=== PATIENT | female | born 1960 | race Caucasian/White ===

== ENCOUNTER → 2020-06-05 11:12 | Outpatient (CLI) | payer OTHER, SELFPAY ==
--- NOTE | 2020-06-05 | DI.MG.S_ITS ---
BILATERAL DIGITAL SCREENING MAMMOGRAM 3D/2D WITH CAD: 06/05/2020 CLINICAL: Routine screening. Comparison is made to exam dated: 06/16/2016 mammogram - outside location. The tissue of both breasts is heterogeneously dense. This may lower the sensitivity of mammography. Current study was also evaluated with a Computer Aided Detection (CAD) system. No significant masses, calcifications, or other findings are seen in either breast. There has been no significant interval change. IMPRESSION: NEGATIVE There is no mammographic evidence of malignancy. A 1 year screening mammogram is recommended. This exam was interpreted at Station ID: [id number]. NOTE: For mammograms, a report in lay terms will be sent to the patient. Approximately 15% of breast malignancies will not be visualized mammographically. In the management of a palpable breast mass, a negative mammogram must not discourage biopsy of a clinically suspicious lesion. Electronically Signed By: Ludwig paredes/avel:06/05/2020 15:10:01 letter sent: Normal Exam ACR BI-RADS Category 1: Negative 3341F
== END ==
PROVIDERS: PCP Family Medicine; Referring Provider Family Medicine; Visit Provider Family Medicine
DX: Z12.31 Encounter for screening mammogram for malignant neoplasm of breast (principal)
CPT/HCPCS: 77063; 77067

== ENCOUNTER 2021-02-24 21:07 | Emergency (ER) | payer OTHER, SELFPAY ==
[2021-02-24] VITALS (7 sets, daily range): BP systolic 130–133; BP diastolic 65–73; PULSE 78–98; RESP 16–22; TEMP 36.9–37.8; O2SAT 94–97; BMI 26.3
--- NOTE | 2021-02-24 21:15 | DI.RAD.S_ITS ---
PROCEDURE: XR CHEST 1V INDICATIONS: COVID positive, shortness of breath TECHNIQUE: One view of the chest was acquired. COMPARISON: None. FINDINGS: Surgical changes and devices: None. Lungs and pleura: There is suggestion of subtle airspace opacities in the lung bases and lateral portions of the mid lung zones bilaterally. No pleural effusion or pneumothorax. Mediastinum: Mediastinal contours appear normal. Heart size is normal. Bones and chest wall: No suspicious bony lesions. Overlying soft tissues appear unremarkable. IMPRESSION: Possible subtle airspace opacities at the lung bases and peripheral mid lung zones bilaterally. Dictated by: Rainer Collier M.D. on 02/24/2021 at 21:54 Approved by: Rainer Collier M.D. on 02/24/2021 at 21:55
[2021-02-24 21:55] LABS: COVID19 -Nasal RAPID POSITIVE (Negative)
--- NOTE | 2021-02-24 22:06 | ED.GENADULT ---
HPI - General Adult General Chief complaint: Shortness of Breath/Dyspnea Stated complaint: COVID HARD TO TAKE BREATHS Time Seen by Provider: 02/24/21 21:14 Source: patient Mode of arrival: Family Vehicle Limitations: no limitations History of Present Illness HPI narrative: Patient is a 61-year-old female who approximately 1 week ago started having body aches and chills. She was tested had T local drugstore last and was positive for COVID. She has anemia Nyes to for COVID-19. She comes the emergency department today stating that she is having shortness of breath, problems taking deep breaths, nausea, headache and generally not feeling well. Related Data Allergies Allergy/AdvReac Type Severity Reaction Status Date / Time Penicillins Allergy Unknown Verified 02/24/21 21:34 Sulfa (Sulfonamide Allergy Unknown Hives Verified 02/24/21 21:34 Antibiotics) Review of Systems Constitutional Constitutional: Reports as per HPI ENT Ears, Nose, Mouth, and Throat: Reports as per HPI Cardiovascular Cardiovascular: Reports system reviewed and no additional complaints, except as documented Respiratory Respiratory: Reports as per HPI Gastrointestinal Gastrointestinal: Reports as per HPI Musculoskeletal Musculoskeletal: Reports system reviewed and no additional complaints, except as documented Integumentary/Breasts Skin/Breast: Reports system reviewed and no additional complaints, except as documented Neurologic Neurologic: Reports system reviewed and no additional complaints, except as documented Hematologic/Lymphatic On Anticoagulants: No Patient History Social History Smoking Status: Never smoker Smoking Status: Never smoker alcohol intake frequency: 0-2 drinks per day Substance Use Type: does not use Exam Initial Vital Signs Initial Vital Signs: Vital Signs Temperature 100.0 F H 02/24/21 21:15 Pulse Rate 98 H 02/24/21 21:15 Respiratory Rate 18 02/24/21 21:15 Blood Pressure 133/65 02/24/21 21:15 Pulse Oximetry 94 02/24/21 21:15 Const General: well developed and well groomed HENMT Head: normal to inspection and normocephalic Eyes General: appearance normal, both eyes and all related structures Resp Effort & Inspection: not labored and tachypneic Auscultation: clear to auscultation bilaterally Cardio Rate: regular rate Rhythm: regular rhythm GI Inspection: normal to inspection Skin Lesions: no lesions Neuro General: patient alert, patient awake, patient oriented x3 and moves all extremities Extrem General: normal to inspection Psych Appearance: grossly normal and well kempt Course Orders Ordered: ED Orders 02/24/21 21:15 XR chest 1V Stat 02/24/21 21:19 COVID19 -Nasal swab/Pre-Proc Stat Discontinued Medications Acetaminophen (Acetaminophen 325 Mg Tablet) 325 mg PO NOW ONE Stop: 02/24/21 22:07 Last Admin: 02/24/21 22:14 Dose: 325 mg Documented by: COMPAOR Sodium Chloride (Normal Saline 0.9%) 1,000 mls @ 1,000 mls/hr IV BOLUS ONE Stop: 02/24/21 23:05 Last Infusion: 02/24/21 23:20 Dose: 0 mls/hr Documented by: Admin: 02/24/21 22:14 Dose: 1,000 mls/hr Documented by: BASSAM Vital Signs Vital signs: Vital Signs - 8 hr 02/24/21 21:15 02/24/21 21:18 02/24/21 21:30 Temperature 100.0 F H Pulse Rate 98 H 92 H 82 Respiratory Rate 18 19 Blood Pressure 133/65 Pulse Oximetry 94 95 94 02/24/21 22:00 02/24/21 22:30 02/24/21 23:00 Temperature 98.5 F Pulse Rate 82 78 80 Respiratory Rate 20 16 21 Blood Pressure Pulse Oximetry 94 97 97 02/24/21 23:21 Temperature Pulse Rate 83 Respiratory Rate 22 Blood Pressure 130/73 Pulse Oximetry 97 Medical Decision Making Lab Data Labs: Lab Results 02/24/21 Range/Units 21:19 SARS-CoV-2 (PCR) Positive H (Negative) Imaging Data Chest x-ray: Radiologist's Impression: [address] [address]SQtc ReportSigned Patient: Pratibha BakercaMR#: [id number]: 1960cct:[id number]/Sex: 60 / FDate of Service: 02/24/21Loc: EDAccession Number: [id number] Procedure: XR chest 1V Ordering Provider: Nehemiah Shepherd D.O. PROCEDURE: XR CHEST 1V INDICATIONS: COVID positive, shortness of breath TECHNIQUE: One view of the chest was acquired. COMPARISON: None. FINDINGS: Surgical changes and devices: None. Lungs and pleura: There is suggestion of subtle airspace opacities in the lung bases and lateral portions of the mid lung zones bilaterally. No pleural effusion or pneumothorax. Mediastinum: Mediastinal contours appear normal. Heart size is normal. Bones and chest wall: No suspicious bony lesions. Overlying soft tissues appear unremarkable. IMPRESSION: Possible subtle airspace opacities at the lung bases and peripheral mid lung zones bilaterally. Dictated by: Rainer Collier M.D. on 02/24/2021 at 21:54 Approved by: Rainer Collier M.D. on 02/24/2021 at 21:55 MDM Narrative Medical decision making narrative: She is COVID positive. Her chest x-ray does not show any signs of infiltrates. She is not hypoxic. Is a clear lung exam. Discussed with her that unfortunately there is not much more we can to emergency department today. Discussed though she should take Tylenol for any headaches. We did discuss the current guidelines with regard to quarantine herself from others. She was advised to obtain a pulse oximeter and return to the emergency department if her symptoms worsen. Discharge Plan Departure Patient Disposition: Home Clinical Impression: COVID-19 Instructions: DI for COVID-19 (Suspected or Confirmed ) Activity Restrictions/Additional Instructions: Like you previously new, your positive for COVID-19. Unfortunately this infection can cause shortness of breath and body aches and headaches and fevers. You can take Tylenol for the symptoms. Your to quarantine yourself until it has been 14 days after your initial positive test and until you have been symptom-free for 24 hours. I recommend that you purchase a pulse oximeter so that she could monitor your oxygen saturations at home. If they are consistently below 90 please return to the emergency department. Referrals: Grecia Salas DO [Primary Care Provider] -
[2021-02-24] MEDS: SODIUM CHLORIDE 0.9% 1,000 ML 1000 ML IV (22:14)
[2021-02-24] MEDS: ACETAMINOPHEN 325 MG TABLET PO (22:14)
== END 2021-02-24 23:36 | disposition home or self-care (01) ==
PROVIDERS: Emergency Provider Emergency Medicine; PCP Family Medicine
DX: U07.1 COVID-19 (principal)
CPT/HCPCS: 36415; 71045; 87635; 96360; 99284; C9803

== ENCOUNTER → 2021-08-20 15:56 | Outpatient (CLI) | payer OTHER, SELFPAY ==
--- NOTE | 2021-08-20 15:57 | DI.MG.S_ITS ---
BILATERAL DIGITAL SCREENING MAMMOGRAM 3D/2D WITH CAD: 08/20/2021 CLINICAL: Routine screening. Comparison is made to exams dated: 06/05/2020 mammogram - [facility] and 06/16/2016 mammogram - outside location. The tissue of both breasts is heterogeneously dense. This may lower the sensitivity of mammography. Current study was also evaluated with a Computer Aided Detection (CAD) system. No significant masses, calcifications, or other findings are seen in either breast. There has been no significant interval change. IMPRESSION: NEGATIVE There is no mammographic evidence of malignancy. A 1 year screening mammogram is recommended. This exam was interpreted at Station ID: [id number]. NOTE: For mammograms, a report in lay terms will be sent to the patient. Approximately 15% of breast malignancies will not be visualized mammographically. In the management of a palpable breast mass, a negative mammogram must not discourage biopsy of a clinically suspicious lesion. Electronically Signed By: Oksar Clark M.D., jr/avel:08/20/2021 16:33:02 letter sent: Normal Exam ACR BI-RADS Category 1: Negative 3341F
== END ==
PROVIDERS: PCP Family Medicine; Referring Provider Family Medicine; Visit Provider Family Medicine
DX: Z12.31 Encounter for screening mammogram for malignant neoplasm of breast (principal)
CPT/HCPCS: 77063; 77067

== ENCOUNTER 2024-01-13 08:11 | Emergency (ER) | payer OTHER, SELFPAY ==
[2024-01-13] VITALS (36 sets, daily range): BP systolic 106–164; BP diastolic 57–94; PULSE 53–76; RESP 11–28; O2SAT 93–100; BMI 25.8
--- NOTE | 2024-01-13 08:13 | ED_ITS ---
HPI - Chest Pain General Chief Complaint: Chest Pain Stated Complaint: chest pain Time Seen by Provider: 01/13/24 08:13 Source: patient, RN notes reviewed and old records reviewed Mode of arrival: Ambulatory Limitations: no limitations History of Present Illness HPI narrative: 63-year-old female with history of GERD who presents with complaint of anterior chest pain substernal that she woke up when her alarm clock went off this morning at 6:15 a.m.. Patient has had persistent substernal chest pressure radiates a little bit towards her back and up to her neck. Denies any shortness of breath, did have some diaphoresis earlier. Had some nausea, no vomiting. Patient has felt a little lightheaded but no syncope. Denies other GI or urinary symptoms. Patient denies any new swelling in extremities. Has not had similar symptoms in the past. She describes the pain is persistent was little bit worse when she went upstairs. Patient states it has never resolved. States her only medication is antacid. She has had prior knee and abdominal surgery in the past. Has allergies to Septra and penicillin. No tobacco, alcohol or recreational drugs. She never had a stress test denies any family history of cardiac issues. Patient was seen by EMS had aspirin 324 mg given had an EKG but arrived via private auto. Related Data Allergies Allergy/AdvReac Type Severity Reaction Status Date / Time Penicillins Allergy Unknown Verified 08/05/23 10:28 Sulfa (Sulfonamide Allergy Unknown Hives Verified 08/05/23 10:28 Antibiotics) Review of Systems Review of Systems ROS Unobtainable: All systems reviewed & are unremarkable except as noted in HPI and below Patient History Social History Smoking Status: Never smoker Smoking Status: Never smoker alcohol intake frequency: 0-2 drinks per day Substance Use Type: does not use Exam Narrative Exam Narrative: GENERAL: Alert and oriented x three, female in mild distress HEENT: Head normocephalic, atraumatic, EOMI, pupils reactive, face symmetric, moist mucous membranes NECK: Supple, full range of motion CARDIOVASCULAR: Regular rate and rhythm without murmurs, rubs or gallops. No JVD. No edema bilateral lower extremities. RESPIRATORY: Breath sounds equal bilaterally, no wheezes rales or rhonchi. ABDOMEN: Soft, nontender. Normoactive bowel sounds all 4 quadrants. No guarding or rebound, rigidity, no mass : No CVA tenderness EXTREMITIES: Normal range of motion, no clubbing or edema. Neurovascularly intact NEUROLOGICAL: Cranial nerves II through XII grossly intact. Moving all extremities SKIN: Warm, dry, no petechiae, no rashes or lesions. Initial Vital Signs Initial Vital Signs: Vital Signs Pulse Rate 63 01/13/24 08:17 Respiratory Rate 19 01/13/24 08:17 Blood Pressure 147/83 H 01/13/24 08:17 Pulse Oximetry 98 01/13/24 08:17 Oxygen Delivery Method Room Air 01/13/24 08:17 Course Orders Ordered: ED Orders 01/13/24 10:20 Trop I [Troponin I] Stat 01/13/24 10:28 EKG-12 Lead Routine 01/13/24 12:30 Trop I [Troponin I] Stat Discontinued Medications Heparin Sodium (Porcine) (Heparin 5,000 Unit/Ml Vial) 4,500 unit 60 unit/kg (4500 unit) IV NOW ONE Stop: 01/13/24 13:17 Last Admin: 01/13/24 13:45 Dose: 4,500 unit Documented By: JERMAINE Sodium Chloride (Normal Saline 0.9%) 1,000 mls @ 150 mls/hr IV CONT HANK Last Infusion: 01/13/24 16:59 Dose: 150 mls/hr Documented By: Admin: 01/13/24 15:20 Dose: 150 mls/hr Documented By: Infusion: 01/13/24 15:16 Dose: Infused Documented By: Admin: 01/13/24 08:35 Dose: 150 mls/hr Documented By: SANTY Heparin Sodium/Dextrose (Heparin Drip) 25,000 unit in 500 mls @ 17.418 mls/hr IV CONT HANK; Protocol Last Titration: 01/13/24 16:58 Dose: 12 units/kg/hr, 17.418 mls/hr Documented By: JERMAINE Co-signed By: KENNETH Admin: 01/13/24 13:46 Dose: 12 units/kg/hr, 17.418 mls/hr Documented By: JERMAINE Co-signed By: RACHID Nitroglycerin (Nitroglycerin) 50 mg in 250 mls @ 1.5 mls/hr IV TITRATE HANK; Protocol Last Titration: 01/13/24 17:00 Dose: 40 mcg/min, 12 mls/hr Documented By: Titration: 01/13/24 15:03 Dose: 40 mcg/min, 12 mls/hr Documented By: Titration: 01/13/24 14:51 Dose: 30 mcg/min, 9 mls/hr Documented By: Titration: 01/13/24 14:44 Dose: 20 mcg/min, 6 mls/hr Documented By: Titration: 01/13/24 14:39 Dose: 10 mcg/min, 3 mls/hr Documented By: Admin: 01/13/24 13:56 Dose: 5 mcg/min, 1.5 mls/hr Documented By: JERMAINE Morphine Sulfate (Morphine 2 Mg/Ml Inj) 2 mg IV NOW ONE Stop: 01/13/24 15:54 Last Admin: 01/13/24 16:02 Dose: 2 mg Documented By: JERMAINE Nitroglycerin (Nitroglycerin 0.4 Mg Sl Tab) 0.4 mg SL [id number] PRN PRN Reason: Chest Pain Last Admin: 01/13/24 09:25 Dose: 0.4 mg Documented By: Admin: 01/13/24 09:02 Dose: 0.4 mg Documented By: Admin: 01/13/24 08:36 Dose: 0.4 mg Documented By: SANTY Nitroglycerin (Nitroglycerin Oint 1 Inch/Gm Oint...G.) 1 inch TOP NOW ONE Stop: 01/13/24 12:18 Last Admin: 01/13/24 12:21 Dose: 1 inch Documented By: SANTY Ondansetron HCl (Ondansetron 4 Mg/2 Ml Inj) 4 mg IV NOW ONE Stop: 01/13/24 15:18 Last Admin: 01/13/24 15:20 Dose: 4 mg Documented By: JERMAINE Vital Signs Vital signs: Vital Signs - 8 hr 01/13/24 11:25 01/13/24 11:30 01/13/24 11:30 Pulse Rate 59 L 54 L Respiratory Rate Blood Pressure 145/70 H Pulse Oximetry 99 99 01/13/24 11:45 01/13/24 11:45 01/13/24 12:09 Pulse Rate 58 L 62 Respiratory Rate 23 20 Blood Pressure 137/66 Pulse Oximetry 98 99 01/13/24 12:10 01/13/24 12:10 01/13/24 12:15 Pulse Rate 57 L 53 L Respiratory Rate 18 11 L Blood Pressure 139/63 Pulse Oximetry 99 98 01/13/24 12:15 01/13/24 12:21 01/13/24 12:30 Pulse Rate 60 Respiratory Rate Blood Pressure 140/70 140/70 140/77 Pulse Oximetry 01/13/24 12:30 01/13/24 12:45 01/13/24 12:45 Pulse Rate 75 60 Respiratory Rate 12 12 Blood Pressure 138/80 Pulse Oximetry 99 99 01/13/24 13:00 01/13/24 13:00 01/13/24 13:15 Pulse Rate 66 Respiratory Rate 22 Blood Pressure 140/85 149/77 H Pulse Oximetry 99 01/13/24 13:15 01/13/24 13:30 01/13/24 13:30 Pulse Rate 63 69 Respiratory Rate 12 21 Blood Pressure 150/94 H Pulse Oximetry 100 99 01/13/24 13:56 01/13/24 13:59 01/13/24 13:59 Pulse Rate 60 63 Respiratory Rate 14 Blood Pressure 150/94 H 164/82 H Pulse Oximetry 99 01/13/24 14:00 01/13/24 14:00 01/13/24 14:16 Pulse Rate 62 69 Respiratory Rate 15 20 Blood Pressure 162/84 H Pulse Oximetry 99 96 01/13/24 14:16 01/13/24 14:30 01/13/24 14:31 Pulse Rate 62 Respiratory Rate 19 Blood Pressure 136/68 144/80 H Pulse Oximetry 97 01/13/24 14:31 01/13/24 14:45 01/13/24 14:45 Pulse Rate 63 64 Respiratory Rate 18 22 Blood Pressure 141/79 H Pulse Oximetry 98 97 01/13/24 15:00 01/13/24 15:00 01/13/24 15:15 Pulse Rate 65 63 Respiratory Rate 25 H 17 Blood Pressure 107/61 Pulse Oximetry 95 93 01/13/24 15:15 01/13/24 15:30 01/13/24 15:30 Pulse Rate 60 Respiratory Rate 28 H Blood Pressure 107/61 115/64 Pulse Oximetry 96 01/13/24 15:45 01/13/24 15:45 01/13/24 16:00 Pulse Rate 58 L Respiratory Rate 13 Blood Pressure 123/69 118/59 L Pulse Oximetry 96 01/13/24 16:00 01/13/24 16:15 01/13/24 16:15 Pulse Rate 62 63 Respiratory Rate 23 20 Blood Pressure 114/57 L Pulse Oximetry 95 94 01/13/24 16:30 01/13/24 16:30 Pulse Rate 63 Respiratory Rate 16 Blood Pressure 109/58 L Pulse Oximetry 93 MDM - Chest Pain Lab Data 01/13/24 08:20 01/13/24 08:20 Labs: Lab Results 01/13/24 01/13/24 01/13/24 Range/Units 08:20 10:20 12:30 WBC 5.2 (4.5-11.0) X10^3/uL RBC 4.48 (4.0-5.2) X10^6/uL Hgb 13.7 (12.0-16.0) g/dL Hct 40.2 (36-46) % MCV 89.7 (80-100) fL MCH 30.6 (26-34) PG MCHC 34.1 (30-36) % RDW 13.6 (11.6-14.8) % Plt Count 217 (150-400) X10^3/uL Neut % (Auto) 64.0 (50-75) % Lymph % (Auto) 25.5 (25-40) % [place] % (Auto) 7.5 (3-14) % Eos % (Auto) 2.3 (2-4) % Baso % (Auto) 0.7 (0-2) % Neut # (Auto) 3300 (5315-9653) /uL Lymph # (Auto) 1300 (2547-1426) /uL [place] # (Auto) 400 (0-900) /uL Eos # (Auto) 100 (0-450) /uL Baso # (Auto) 0 (0-100) /uL PT 11.1 (9.4-12.5) SECONDS INR 1.0 (0.9-1.3) APTT 30 (25.1-36.5) SECONDS Sodium 140 (137-145) mmol/L Potassium 4.2 (3.4-5.1) mmol/L Chloride 110 H (98-107) mmol/L Carbon Dioxide 27 (22-32) mmol/L BUN 16 (7-17) mg/dL Creatinine 0.87 (0.52-1.04) mg/dL Estimated GFR > 60 (>60) mL/min BUN/Creatinine Ratio 18.4 (6-22) Glucose 110 (80-110) mg/dL Calcium 9.2 (8.4-10.2) mg/dL Total Bilirubin 1.0 (0.2-1.3) mg/dL AST 23 (14-36) IU/L ALT 18 (<35) IU/L Alkaline Phosphatase 72 (38-126) U/L Total Creatine Kinase 44 (30-135) U/L Troponin I < 0.012 0.027 0.202 H* (0.01-0.034) ng/mL NT-Pro-B Natriuret Pep 72 (<125) pg/mL Total Protein 6.6 (6.3-8.2) g/dL Albumin 4.2 (3.5-5.0) g/dL Globulin 2.4 (1.7-4.1) g/dL Albumin/Globulin Ratio 1.8 (1.0-2.8) Lipase 61 (23-300) U/L Imaging Data Chest x-ray: Radiologist's Impression: Close Chest X-Ray (Signed) Joey Linares - 01/13/24 Mammogram Screening (Signed) Oskar Clark - 08/20/21 Chest X-Ray (Signed) AmiraRainer - 02/24/21 Mammogram Screening (Signed) Ludwig Wills - 06/05/20 Launch?Image [address] [address] XRay Report Signed Patient: Carolyn Baker MR#: [id number] : 1960 Acct:[id number] Age/Sex: 63 / F Date of Service: 01/13/24 Loc: ED Accession Number: [id number] Procedure: XR chest 1V Ordering Provider: Morena Ruvalcaba D.O. PROCEDURE: XR CHEST 1V INDICATIONS: chest pain TECHNIQUE: One view of the chest was acquired. COMPARISON: [facility], , XR CHEST 1V, 02/24/2021, 21:17. FINDINGS: Surgical changes and devices: None. Lungs and pleura: Lungs are clear. No pleural effusions or pneumothorax. Mediastinum: Mediastinal contours appear normal. Heart size is normal. Bones and chest wall: No suspicious bony lesions. Overlying soft tissues appear unremarkable. IMPRESSION: No acute cardiopulmonary abnormality is seen. Dictated by: Joey Linares M.D. on 01/13/2024 at 9:47 Approved by: Joey Linares M.D. on 01/13/2024 at 9:47 ECG Data Attestation: I personally reviewed and interpreted this ECG as follows: Interpretation: EMS EKG shows sinus rhythm rate 84, VT 132 QRS of 86, QTC of [address] depression 2 3 and AVF. No elevation on her EKG from EMS. EKG here in the department shows depression in 2 3 and AVF, no clear elevation questionable depression V4 V5. Rate of 58 VT 136 QRS 84 QTC of 408. MDM Narrative Medical decision making narrative: 63-year-old female presents with complaint of chest pressure from 01/14 this morning showed no with no resolution. Patient does have some ST depression 2 3 AVF EKG and possibly little in V4 5 as well. No elevation appreciated. Labs normal CBC, coags are normal chloride 110 otherwise normal electrolytes renal function and LFTs. CK is 44, troponin is less than 0.012. BNP is 72. Chest x-ray shows no acute change Patient had troponin repeated and is still negative but 0.027 with no dynamic EKG changes, still has ST depression. Patient ASA 324 mg in the field. Nitro sublingual here in the department. On recheck chest pain has resolved. Spoke with Dr. Ruiz cardiology recommends chest Pain observation. Spoke with Dr. Das, hospitalist asked for a 3rd troponin. Think this is prudent. Patient's chest pain had also reoccurred had nitro paste placed. Patient's 3rd troponin is 0.202 positive. Patient has depression but no elevation family has NSTEMI. She was started on heparin, nitro drip with nitro paste removed. Received aspirin earlier today 324 mg with EMS. Discussed with patient and family at bedside, plan for transfer she has been hemodynamically stable thus far. Spoke with Dr. Spring, hospitalist Marita banda who accepts for transfer. Patient on heparin gtt, nitro drip has titrated up for chest pain. Patient has otherwise been hemodynamically stable. Has not had complete resolution of chest pain. Reviewed labs, imaging and EKG changes. Critical Care Time Critical Care Time Attestation: The high probability of a clinically significant, sudden or life threatening deterioration of the cardia system(s) required my full and direct attention, intervention and personal management. The aggregate critical care time was 45 minutes. This time is in addition to time spent performing reported procedures but includes the following: [x] Data Review and interpretation [x] Patient assessment and monitoring of vital signs [x] Documentation [x] Medication orders and management Discharge Plan Departure Patient Disposition: [facility] Clinical Impression: Non-ST elevation [place] (NSTEMI) Referrals: Grecia Salas DO [Primary Care Provider] -
--- NOTE | 2024-01-13 08:21 | DI.RAD.S_ITS ---
PROCEDURE: XR CHEST 1V INDICATIONS: chest pain TECHNIQUE: One view of the chest was acquired. COMPARISON: [facility], CR, XR CHEST 1V, 02/24/2021, 21:17. FINDINGS: Surgical changes and devices: None. Lungs and pleura: Lungs are clear. No pleural effusions or pneumothorax. Mediastinum: Mediastinal contours appear normal. Heart size is normal. Bones and chest wall: No suspicious bony lesions. Overlying soft tissues appear unremarkable. IMPRESSION: No acute cardiopulmonary abnormality is seen. Dictated by: Joey Linares M.D. on 01/13/2024 at 9:47 Approved by: Joey Linares M.D. on 01/13/2024 at 9:47
--- NOTE | 2024-01-13 08:21 | EKG_ITS ---
[place] [address] [address] Test Date: 2024-01-13 Pat Name: Carolyn Baker Department: Room: Gender: Female Blending Coordinator: LEXI : 1960 Requested By: Order Number: [id number] Reading MD: Viral Perez MD Measurements Intervals [place] Rate: 58 P: 55 [place]: 136 QRS: 35 QRSD: 84 T: 4 QT: 416 QTc: 408 Interpretive Statements Sinus bradycardia Nonspecific ST abnormality Electronically Signed On 01-13-2024 11:55:51 PDT by Viral Perez MD
[2024-01-13 08:29] LABS: Add Manual Diff / Slide Review NO; Basophils Absolute Auto 0 /uL (0-100); Basophils Percent Auto 0.7 % (0-2); Eosinophils Absolute Auto 100 /uL (0-450); Eosinophils Percent Auto 2.3 % (2-4); Hematocrit 40.2 % (36-46); Hemoglobin 13.7 g/dL (12.0-16.0); Lymphocytes Absolute Auto 1300 /uL (1100-4500); Lymphocytes Percent Auto 25.5 % (25-40); Mean Corpuscular HGB Conc 34.1 % (30-36); Mean Corpuscular Hemoglobin 30.6 PG (26-34); Mean Corpuscular Volume 89.7 fL (80-100); Monocytes Absolute Auto 400 /uL (0-900); Monocytes Percent Auto 7.5 % (3-14); Neutrophils Absolute Auto 3300 /uL (1500-7000); Platelet Count 217 X10^3/uL (150-400); Red Blood Cell Count 4.48 X10^6/uL (4.0-5.2); Red Cell Distribution Width 13.6 % (11.6-14.8); White Blood Cell Count 5.2 X10^3/uL (4.5-11.0)
[2024-01-13] MEDS: SODIUM CHLORIDE 0.9% 1,000 ML 150 ML IV ×2 (08:35→15:20)
[2024-01-13] MEDS: NITROGLYCERIN 0.4 MG SL TAB SL ×3 (08:36→09:25)
[2024-01-13 08:42] LABS: Prothrombin Time 11.1 SECONDS (9.4-12.5)
[2024-01-13 08:45] LABS: PTT Partial Thromboplastin Tim 30 SECONDS (25.1-36.5)
[2024-01-13 08:51] LABS: Alanine Aminotransferase 18 IU/L (<35); Albumin 4.2 g/dL (3.5-5.0); Albumin Globulin Ratio 1.8 (1.0-2.8); Alkaline Phosphatase 72 U/L (38-126); Aspartate Aminotransferase 23 IU/L (14-36); BUN Creatinine Ratio 18.4 (6-22); Blood Urea Nitrogen 16 mg/dL (7-17); Calcium 9.2 mg/dL (8.4-10.2); Carbon Dioxide 27 mmol/L (22-32); Chloride 110 mmol/L (98-107); Creatine Kinase 44 U/L (30-135); Estimated Glomerular Filt Rate > 60 mL/min (>60); Globulin 2.4 g/dL (1.7-4.1); Glucose 110 mg/dL (80-110); HEMOLYSIS < 15 (0-50); Lipase 61 U/L (23-300); Potassium 4.2 mmol/L (3.4-5.1); Sodium 140 mmol/L (137-145); Total Protein 6.6 g/dL (6.3-8.2)
[2024-01-13 09:00] LABS: NT-proBNP (BNP-Adult 18+) 72 pg/mL (<125)
[2024-01-13 09:03] LABS: Troponin I < 0.012 ng/mL (0.01-0.034)
--- NOTE | 2024-01-13 10:28 | EKG_ITS ---
[address] [address] Test Date: 2024-01-13 Pat Name: Carolyn Baker Department: Room: Gender: Female Nurse Infection Control: YOLIS : 1960 Requested By: Order Number: [id number] Reading MD: Viral Perez MD Measurements Intervals [place] Rate: 60 P: 53 [place]: 138 QRS: 32 QRSD: 82 T: 5 QT: 428 QTc: 428 Interpretive Statements Normal sinus rhythm Electronically Signed On 01-13-2024 14:34:35 PDT by Viral Perez MD
[2024-01-13 10:54] LABS: Troponin I 0.027 ng/mL (0.01-0.034)
--- NOTE | 2024-01-13 12:15 | PM.CALLCOV.1 ---
Call Coverage Note Note Date of Patient Contact: 01/13/24 Narrative of Care Provided: 63 F presented with chest pain starting this morning. EKG with TWI in lead III, non-specific for ischemia. Troponin started negative, increased to 0.027 still technically within normal range. Given relatively recent onset of chest pain, request 3rd toponin and if becoming more elevated consideration of transfer for possible NSTEMI. However if 3rd troponin is stable or downtrending agree with observation admission for stress testing. Current HEART score is 4.
[2024-01-13] MEDS: NITROGLYCERIN OINT 1 INCH/GM OINT...G. TOP (12:21)
[2024-01-13 13:15] LABS: Troponin I 0.202 ng/mL (0.01-0.034)
[2024-01-13] MEDS: HEPARIN 5,000 UNIT/ML VIAL 4500 UNIT IV (13:45)
[2024-01-13] MEDS: HEPARIN DRIP 25,000 UNIT/500 ML IV.SOLN 17.418 UNIT IV (13:46)
[2024-01-13] MEDS: NITROGLYCERIN 50 MG/250 ML INFUS..BTL IV (13:56)
[2024-01-13] MEDS: ONDANSETRON 4 MG/2 ML INJ IV (15:20)
[2024-01-13] MEDS: MORPHINE 2 MG/ML INJ IV (16:02)
== END 2024-01-13 17:05 | disposition short-term general hospital (02) ==
PROVIDERS: Emergency Provider Emergency Medicine; Family Provider Physician Assistant Medical; PCP Family Medicine
DX: I21.4 Non-ST elevation (NSTEMI) myocardial infarction (principal); R79.89 Other specified abnormal findings of blood chemistry
CPT/HCPCS: 36415; 71045; 80053; 82550; 83690; 83880; 84484; 85025; 85610; 85730; 93005; 96365; 96366; 96368; 96375; 99284; 99291; J1644; J2270; J2405

== ENCOUNTER 2024-04-10 07:57 | Inpatient (IN) | payer MEDICARE, OTHER, SELFPAY ==
[2024-04-05 14:53] VITALS: BMI 25.8
[2024-04-10] VITALS (15 sets, daily range): BP systolic 103–131; BP diastolic 48–75; PULSE 75–98; RESP 12–18; TEMP 35.6–36.4; O2SAT 93–99; BMI 25.8
[2024-04-10] MEDS: LACTATED RINGERS 1,000 ML 21 ML IV (08:39)
--- NOTE | 2024-04-10 08:54 | PM.PREOP ---
Pre-operative Note Interval Note History & Physical reviewed/Exam performed by Physician: Yes Changes to H&P: No H&P completed within 30 days and has changed as indicated here:: 03/22/24
[2024-04-10] MEDS: ACETAMINOPHEN 325 MG TABLET 975 MG PO (09:17)
--- NOTE | 2024-04-10 09:29 | SUR.OPER ---
Low Lithotomy on padded OR bed, head on pillow, arms secured on padded arm boards at <90 degrees abduction. Legs secured in padded yellow fins stirrups.
[2024-04-10] MEDS: CEFAZOLIN 2 GM/100 ML PREMIX 100 ML IV (09:33)
[2024-04-10] MEDS: BUPIVACAINE 0.25% (PF) 30 ML, EPINEPHrine 0.15 MG INJ (09:46)
--- NOTE | 2024-04-10 11:02 | P.OP_ITS ---
Operative Date/Time/Diagnoses Date of procedure: 04/10/24 Time of procedure: 11:02 Pre-op diagnosis: Third-degree cystocele Second-degree uterine prolapse, desire to keep her uterus Post-op diagnosis: same Procedure & Clinicians Procedure: Procedures Operation Date: 04/10/24 09:45 Actual Procedure Side Surgeon p Anterior Repair, sacrospinal ligament repair Suzy Lowery MD Indications: 63-year-old 6 para 4 with a symptomatic third-degree cystocele and second-degree uterine prolapse Patient desired to keep her uterus Surgeon: Suzy Lowery Intellectual Property Manager: Cally Camacho Anesthesia Type: Spinal and Local Operative Notes Findings: Third-degree midline cystocele Second-degree uterine prolapse Closure Type: primary Specimen(s): none Applied: catheter and other (Betadine moistened vaginal packing) Estimated blood loss (mL): 20 Blood products transfused: none Procedure in detail: The patient was taken to the operating room where she was placed in the dorsal supine position. After adequate general endotracheal anesthesia was achieved, she was placed in the dorsal lithotomy position, and prepped and draped in the usual sterile fashion. A time-out was performed. Allis clamps were placed at the apex of the cystocele. 5cc of 0.25% Marcaine with epinephrine were injected submucosally. An incision was made between the 2 Allis clamps. Wide Allis clamps were placed at the midline of the cystocele to within 1-1/2 cm of the urethral meatus. 10 cc of 0.25% Marcaine with epinephrine were injected submucosally. The mucosa was undermined with Metzenbaum scissors and incised in the midline, moving the wide Allis clamps to the mucosal edges. Using an open moistened Ray-Benedict in a #10 blade, the mucosa was dissected off of the underlying fascia. The fascia was reapproximated using 0 Vicryl with horizontal mattress sutures. The excess vaginal mucosa was excised. The mucosa was closed using 2- 0 Vicryl with simple interrupted sutures including the underlying fascia to close the space. Hemostasis was achieved. The urine was clear. Posteriorly on the patient's right side, 2/3 of the distance to the cervix, 2 Allis clamps were placed approximately 3 cm apart. 5 cc of 0.25% Marcaine with epinephrine were injected submucosally. An incision was made between the 2 Allis clamps. The Allis clamps were removed. The space surrounding the right sacral spinous ligament was dissected out bluntly. The uterosacral ligament was approximately 3 cm in length. Using the Capio needle, 2-0 Prolene was placed into the sacral spinous ligament with good purchase. The other end of the Capio was used then to take a bite out of the posterior cervix. Interrupted sutures were placed in the mucosa but not tied down. The sacral spinous suture was then tied down with 6 knots. The interrupted sutures on the mucosa were then tied and cut. Hemostasis was achieved. A Betadine moistened vaginal packing was placed. The urine was clear. A rectal exam was performed and there was no suture in the rectum. Sponge, lap, and instrument counts were correct x2. The patient tolerated the procedure well, and was taken to PACU in stable condition. Complications: none Post-operative Condition: stable Disposition: PACU Plan for aftercare: To acute care after recovery
[2024-04-10] MEDS: LACTATED RINGERS 1,000 ML 50 ML IV ×2 (12:01→23:38)
[2024-04-10] MEDS: IBUPROFEN 600 MG TABLET PO ×2 (17:22→22:53)
[2024-04-10] MEDS: ATORVASTATIN 20 MG TABLET 40 MG PO (20:29)
[2024-04-10] MEDS: DOCUSATE 100 MG CAPSULE 200 MG PO (20:29)
[2024-04-10] MEDS: ACETAMINOPHEN 325 MG TABLET 650 MG PO (20:29)
[2024-04-11 04:59] LABS: Add Manual Diff / Slide Review NO; Basophils Absolute Auto 0 /uL (0-100); Eosinophils Absolute Auto 0 /uL (0-450); Hematocrit 35.7 % (36-46); Hemoglobin 12.2 g/dL (12.0-16.0); Lymphocytes Absolute Auto 600 /uL (1100-4500); Lymphocytes Percent Auto 5.5 % (25-40); Mean Corpuscular HGB Conc 34.1 % (30-36); Mean Corpuscular Hemoglobin 30.3 PG (26-34); Mean Corpuscular Volume 88.9 fL (80-100); Monocytes Absolute Auto 500 /uL (0-900); Monocytes Percent Auto 4.4 % (3-14); Neutrophils Absolute Auto 10400 /uL (1500-7000); Neutrophils Percent Auto 90.1 % (50-75); Platelet Count 170 X10^3/uL (150-400); Red Blood Cell Count 4.02 X10^6/uL (4.0-5.2); Red Cell Distribution Width 13.3 % (11.6-14.8); White Blood Cell Count 11.6 X10^3/uL (4.5-11.0)
[2024-04-11 05:12] LABS: BUN Creatinine Ratio 20.6 (6-22); Blood Urea Nitrogen 14 mg/dL (7-17); Calcium 9.8 mg/dL (8.4-10.2); Carbon Dioxide 24 mmol/L (22-32); Chloride 110 mmol/L (98-107); Estimated Glomerular Filt Rate > 60 mL/min (>60); Glucose 131 mg/dL (80-110); HEMOLYSIS < 15 (0-50); Potassium 4.2 mmol/L (3.4-5.1); Sodium 138 mmol/L (137-145)
[2024-04-11] MEDS: IBUPROFEN 600 MG TABLET PO (05:35)
[2024-04-11] MEDS: ACETAMINOPHEN 325 MG TABLET 650 MG PO (05:36)
[2024-04-11 08:00] VITALS: BP 114/63; PULSE 68; RESP 16; TEMP 36.3; O2SAT 98
[2024-04-11] MEDS: DOCUSATE 100 MG CAPSULE 200 MG PO (09:09)
[2024-04-11] MEDS: PANTOPRAZOLE DR 40 MG TABLET PO (09:09)
--- NOTE | 2024-04-11 11:46 | PC.NURSE ---
Discharge Note Patient A&O, VSS, RA, mo complaints of pain/discomfort. Discharge packet reviewed with patient, all questions/concerns addressed. PIV discontinued. Patient able to dress self and pack all belongings. Patient taken downstairs via wheelchair to [facility].
--- NOTE | 2024-04-11 11:54 | CM.DANOTE ---
Brief DCP assessment note Pt is a 63yo F here for a colporrhaphy with Dr. Lowery. Pt is POD1. PCP Grecia Salas Payer Medicare and [facility] INSPECTOR CRYSTAL reviewed EMR. Pt left prior to being seen by this INSPECTOR CRYSTAL. Per RN report, pt indep in room, lives indep in [place], and is doing well. No CM needs P: pt discharged home today, no identified barriers to safe dc home. CM team will continue to follow as needed PATRIA May Discharge Planning/Care Management CM Discharge Assessment Start: 04/11/24 11:41 Freq: Status: Discharge Protocol: Document 04/11/24 11:42 SL (Rec: 04/11/24 11:53 SL [id number]) Discharge Planning Assessment Assigned Semiconductor Packages Tester PATRIA Murguia DPOA/Assigned Designee Name Cally sonia Contact Information [phone] Advance Directives? No History Provided By Patient Prior Living Arrangements House Household Members none Independent with ADL's Yes Is patient alert and oriented? Yes Barriers to Discharge No Discharge Plan Home Referrals Initiated None needed Whiteboard Updated in Patient Room with No name and ext. # of Semiconductor Packages Tester Review Status In Process Please Provide Date Initial DC 04/11/24 Assessment Was Performed Next Review Type Continued Stay Review Pre-Anesthesia Assessment Start: 04/05/24 14:53 Freq: Status: Discharge Protocol: Document 04/05/24 14:53 LB (Rec: 04/05/24 15:06 LB [id number]) Pre-Anesthesia Assessment Diagnostic Results EKG Comment Labs & EKG at 01/13/24 Primary Care Provider Grecia Salas Medical Clearance Received Not Applicable Seen Specialist in Last 12 Months Yes Specialist Seen Emergency Primary Language Chadian Preferred Language Chadian Crystal Inspector Required No Height 170.18 cm Weight 74.843 kg Body Mass Index (BMI) 25.8 Anesthesia Review Requested No Gear Machine Operator General No alcohol intake frequency 0-2 drinks per day Smoking Status Never smoker Substance Use Type does not use Hx Sleep Apnea No Currently Taking a Beta Brandi No Anti-Coagulant Therapy No Cardiac Testing Yes: EKG 01/13/24 at Hx Pacemaker/ICD No Pacemaker Rep Required? No Diabetes No Patient No Lactating No Received a COVID vaccine? No: no covid vaccination Emergency Contact Name Cally Lara - daughter Emergency Contact Advance Directives? No
--- NOTE | 2024-05-06 22:43 | P.DS_ITS ---
History of Present Illness History of Present Illness Date Patient Seen: 04/11/24 Time Patient Seen: 11:00 Chief complaint: Colporrhaphy Narrative: Patient is a 64-year-old who underwent an anterior repair and a sacral spinous ligament fixation of the cervix/uterus on April 10, 2024. On the morning of April 11, 2024 her Resendiz catheter was removed. She was able to void without elevated postvoid residuals. Her vaginal packing was removed that morning. Her bleeding was minimal. She was ambulating independently. Her pain was well controlled. No nausea or vomiting. She was tolerating a diet. She was discharged home. Discharge Providers Provider Date of admission: 04/10/24 07:57 Discharge Date: 04/11/24 Primary care physician: Grecia Salas DO Discharge provider: Suzy Lowery MD Summary Hospital Course Discharge Diagnosis: Symptomatic cystocele Symptomatic uterine prolapse Hospital Course: Patient is a 64-year-old who presented on April 10, 2024 for a scheduled anterior repair and sacral spinous ligament fixation of the cervix. She underwent this procedure without complication. Her postoperative course was unremarkable. She was able to void without the catheter. Her bleeding was minimal. Her pain was well controlled. She was ambulating without assistance. She was discharged home on April 11, 2024. Status at Discharge Cognitive/behavioral status at discharge: oriented Functional status at discharge: independent ambulation Overall status at discharge: patient is progressing back to baseline Time Spent with Patient Time spent: Less than 30 minutes Exam Vital Signs (past 8 hours): Oxygen Delivery Method Room Air Oxygen Flow Rate 0 Narrative Exam Narrative: Generally: Patient is sitting up in bed, no acute distress Lungs: Clear to auscultation bilaterally Cardiovascular: Regular rate and rhythm Abdomen: Soft and flat Perineum: Dry Extremities: No edema, negative Homans Objective Labs 04/11/24 04:37 04/11/24 04:37 COUNT INCLUDES THE [facility] Medical History (Updated 05/03/24 @ 14:53 by Isa Akhtar DO) PONV (postoperative nausea and vomiting) Miscarriage Endometriosis Tear of meniscus of knee Non-STEMI (non-ST elevated myocardial infarction) (01/2024) GERD (gastroesophageal reflux disease) Cystocele Surgical History (Updated 05/03/24 @ 14:52 by Isa Akhtar DO) H/O rectocele repair H/O cardiac catheterization (~01/2024) History of dilation and curettage H/O exploratory laparotomy Family History (Updated 04/05/24 @ 16:42 by Sujatha Kirby, EDWADR) Daughter No problems noted. Father Esophageal cancer Social History household members: none Smoking Status: Never smoker alcohol intake: current Discharge Assessment & Plan Assessment and Plan Assessment: Postop day # 1 status post anterior repair and sacral spinous ligament fixation of the cervix Patient doing very well Plan of Treatment: Discharge to home Follow-up in 2 weeks Discharge Plan Discharge Plan Patient Disposition: Home Provider Discharge Comment: Call with fever, chills, or bleeding vaginally more than spotting to light Ibuprofen 600 mg every 6 hours as needed Tylenol 650 mg every 6 hours as needed Stool softeners for 6 weeks Discharge orders & Medications Prescriptions: Continued pantoprazole 40 mg tablet,delayed release (DR/EC) 40 mg PO DAILY hydroxyzine HCl 10 mg Tablet 10 mg PO PRN PRN (Reason: Anxiety) Discontinued estradiol 10 mcg Insert 10 mcg VAGINAL 2XW Follow up/Referrals: Suzy Lowery MD [Physician] - As previously scheduled (Patient already has 2 and 6 week postop visits scheduled) Diet/Activity/Treatments Diet: Regular Activity: No heavy lifting Nothing in the vagina for 6 weeks Skin/Wound/Dressing Care Report to your healthcare provider any signs of infection, such as:: chills, fever, increased pain and unusual drainage Visit Report/Discharge Packet Instructions: DI for Cystocele and Rectocele Repair Stand Alone Forms: Patient Portal/API, Stroke Signs & Symptoms, Surgery Discharge Discharge Data Primary Care Provider: Grecia Salas VTE Deep Vein Thrombosis/Pulmonary Embolism Present on Admission: No
== END 2024-04-11 11:00 | disposition home or self-care (01) | DRG 748 ==
PROVIDERS: Admitting Provider Obstetrics & Gynecology; Family Provider Physician Assistant Medical; PCP Family Medicine; Referring Provider Obstetrics & Gynecology; Visit Provider Obstetrics & Gynecology
PROC: 0JQC0ZZ Repair Pelvic Region Subcutaneous Tissue and Fascia, Open Approach (ICD-10-PCS; principal; 2024-04-10 09:45)
DX: N81.2 Incomplete uterovaginal prolapse (principal); K21.9 Gastro-esophageal reflux disease without esophagitis
CPT/HCPCS: 36415; 80048; 85025; J0171; J0690; J1100; J1885; J2405; J2704

== ENCOUNTER → 2024-05-24 10:45 | Outpatient (CLI) | payer MEDICARE, OTHER, SELFPAY ==
[2024-04-10 11:37] VITALS: BMI 25.8
--- NOTE | 2024-05-24 10:47 | DI.RAD.S_ITS ---
PROCEDURE: XR DEXA AXIAL SKELETON INDICATIONS: Screening for osteoporosis COMPARISON: None. FINDINGS: Lumbar Spine: Bone mineral density 1.061 g/cm2, T score 0.1 Left Hip: Bone mineral density 0.682 g/cm2, T score -2.1 Left Femoral Neck: Bone mineral density 0.616 g/cm2, T score -2.1 Right Hip: Bone mineral density 0.664 g/cm2, T score -2.3 Right Femoral Neck: Bone mineral density 0.552 g/cm2, T score -2.7 Fracture Risk Calculation (when applicable): 10-year fracture risk of a major osteoporotic fracture 13 percent and of a hip fracture 2.8 percent. (T score greater or equal to -1.0 to: NORMAL) (T score from -1.1 to -2.4: OSTEOPENIA) (T score less than or equal to -2.5: OSTEOPOROSIS) IMPRESSION: 1. Normal bone density of the lumbar spine. 2. Osteopenia of the left hip and left femoral neck. 3. Osteopenia of the right hip, although approaching osteoporosis. 4. Osteoporosis of the right femoral neck. Follow-up guidelines as follows: Osteoporosis: Consider a repeat DEXA and Vertebral Fracture Assessment (VFA) exam in 2 years or sooner if medically necessary, to reassess this patient's status. Osteopenia: Consider a repeat DEXA in 2-3 years to reassess this patient's status, or if there is a new clinical indication. Normal: Consider a repeat DEXA in 5 years or sooner, or if there is a new clinical indication. All treatment decisions require clinical judgment and consideration of individual patient factors, including patient preferences, comorbidities, previous drug use, risk factors not captured in the FRAX model (e.g., frailty, falls, vitamin D deficiency, increased bone turnover, interval significant decline in bone density ) and possible under- or over-estimation of fracture risk by FRAX. In addition, the NOF Guide recommends that FDA-approved medical therapies be considered in postmenopausal women and men age >= 50 years with a: * Hip or vertebral (clinical or morphometric) fracture * T-score of <=-2.5 at the spine or hip * Ten-year fracture probability by FRAX of >= 3% for hip fracture or >=20% for major osteoporotic fracture. People with diagnosed cases of osteoporosis or at high risk for fracture should have regular bone mineral density tests. For patients eligible for Medicare, routine testing is allowed once every 2 years. The testing frequency can be increased to one year for patients who have rapidly progressing disease, those who are receiving or discontinuing medical therapy to restore bone mass, or have additional risk factors. Dictated by: Boni Vega M.D. on 05/24/2024 at 15:25 Approved by: Boni Vega M.D. on 05/24/2024 at 15:29
== END ==
PROVIDERS: Family Provider Physician Assistant Medical; PCP Family Medicine; Referring Provider Family Medicine; Visit Provider Family Medicine
DX: M81.0 Age-related osteoporosis without current pathological fracture (principal); Z13.820 Encounter for screening for osteoporosis
CPT/HCPCS: 77080

== ENCOUNTER → 2024-05-31 07:15 | Outpatient (CLI) | payer MEDICARE, OTHER, SELFPAY ==
[2024-04-10 11:37] VITALS: BMI 25.8
[2024-05-31 12:35] LABS: Cholesterol 208 mg/dL (140-199); HDL Cholesterol 53 mg/dL (40-60); LDL Cholesterol Calculated 133 mg/dL (<100); Triglycerides 110 mg/dL (35-150)
== END ==
PROVIDERS: Family Provider Physician Assistant Medical; PCP Family Medicine; Referring Provider Family Medicine; Visit Provider Family Medicine
DX: Z13.6 Encounter for screening for cardiovascular disorders (principal); Z79.899 Other long term (current) drug therapy; M81.0 Age-related osteoporosis without current pathological fracture
CPT/HCPCS: 36415; 80061

== ENCOUNTER → 2024-10-03 10:39 | Outpatient (CLI) | payer MEDICARE, OTHER, SELFPAY ==
[2024-04-10 11:37] VITALS: BMI 25.8
[2024-10-03 11:31] LABS: Appearance Urine UA CLEAR; Bilirubin Urine UA NEGATIVE (NEGATIVE); Color Urine UA YELLOW; Glucose Urine UA NEGATIVE (Negative); Ketones Urine UA NEGATIVE (NEGATIVE); Leukocyte Esterase Urine UA 1+ (NEGATIVE); Nitrite Urine UA NEGATIVE (Negative); Occult Blood Urine UA NEGATIVE (Negative); Protein Urine UA NEGATIVE (Negative); Urobilinogen Urine UA 0.2 E.U./dL (0.2)
[2024-10-03 11:42] LABS: Bacteria Urine None Seen; Culture Indicated Urine Specimen Cultured; RBC Urine None Seen (0-5/HPF); Squamous Epithelial Cell Urine 1-5 /HPF (0-5/HPF); Urine Volume 10mL (spun); WBC Urine 1-5/HPF (0-5/HPF)
== END ==
PROVIDERS: Family Provider Physician Assistant Medical; PCP Family Medicine; Referring Provider Family Medicine; Visit Provider Family Medicine
DX: R39.9 Unspecified symptoms and signs involving the genitourinary system (principal); R30.0 Dysuria
CPT/HCPCS: 81001; 87086

== ENCOUNTER → 2024-12-27 08:25 | Outpatient (CLI) | payer MEDICARE, OTHER, SELFPAY ==
[2024-10-03 12:30] VITALS: BMI 25.8
== END ==
PROVIDERS: Family Provider Physician Assistant Medical; PCP Family Medicine; Visit Provider Family Medicine
DX: N30.00 Acute cystitis without hematuria (principal); N95.2 Postmenopausal atrophic vaginitis; L71.9 Rosacea, unspecified; R21 Rash and other nonspecific skin eruption; Z68.26 Body mass index [BMI] 26.0-26.9, adult
CPT/HCPCS: 81002; 87077; 87086; 87186

== ENCOUNTER → 2025-01-26 10:11 | Outpatient (CLI) | payer MEDICARE, OTHER, SELFPAY ==
[2024-10-03 12:30] VITALS: BMI 25.8
[2025-01-27 14:36] LABS: Candida species Positive (Negative); Gardnerella vaginalis Positive (Negative); Trichomoas vaginalis Negative (Negative)
== END ==
PROVIDERS: Family Provider Physician Assistant Medical; PCP Family Medicine; Visit Provider Obstetrics & Gynecology
DX: N89.8 Other specified noninflammatory disorders of vagina (principal)
CPT/HCPCS: 87480; 87510; 87660

== ENCOUNTER 2025-05-31 08:15 | Outpatient (RCR) | payer MEDICARE, OTHER, SELFPAY ==
[2024-10-03 12:30] VITALS: BMI 25.8
--- NOTE | 2024-10-31 16:00 | PT.OIE ---
Current Diagnoses Pelvic muscle wasting (10/31/24) Other female genital prolapse (10/31/24) Pelvic and perineal pain (10/31/24) Past Medical History (Last Updated 06/18/24 @ 22:12 by Pricila Mullen) Abnormal Pap smear of cervix Anxiety Chicken pox (~1968) Cystocele Depression Endometriosis Fibroids Fractures (~2022) GERD (gastroesophageal reflux disease) Human papilloma virus Measles Miscarriage Non-STEMI (non-ST elevated myocardial infarction) (01/2024) Osteoporosis Ovarian cyst PONV (postoperative nausea and vomiting) Prolapsed bladder Prolapsed uterus Rosacea Rubella (~1966) Skin cancer (~2011) Tear of meniscus of knee Tinnitus Past Surgical History (Last Updated 06/18/24 @ 22:12 by Pricila Mullen) Anesthesia H/O cardiac catheterization (~01/2024) H/O exploratory laparotomy H/O rectocele repair History of dilation and curettage History of knee surgery (~2018) History of vaginal surgery (~04/10/24) Visit Care Team Role Provider Type Isa Akhtar DO Primary Care Provider Physician Specialty: Family Practice Address: [address] [place] [address], [address], [place], [facility] Email: [email or web address] [email or web address] Blake PA-C Family Provider Non-Staff Specialty: Medical Address: [address] [place] [address], [id number] Email: Suzy Lowery MD Attending Provider Physician Referring Provider Specialty: Gynecology PARKING ASSISTANT Obstetrics Address: [address] [place] [address], [id number] Email: [email or web address] Physical Therapy Initial Evaluation PT-OP-A Visit Information Start: 10/31/24 08:41 Freq: Status: Active Protocol: Document 10/31/24 09:00 [facility] (Rec: 10/31/24 09:15 [facility] [id number]) Out-Patient Physical Therapy Visit Information Visit Information Visit Type Initial Evaluation Visit Start Time 09:00 Visit Stop Time 09:45 Visit Number 1 Evaluation Information Evaluation Date 10/31/24 PT-OP-B Current Condition Start: 10/31/24 08:41 Freq: Status: Active Protocol: Document 10/31/24 09:00 [facility] (Rec: 10/31/24 09:15 [facility] [id number]) Current Condition History of Current Condition Onset Date past 2 years Current Complaints weakness in her pelvic floor, cramping History of Current Condition 64 year old female s/p anterior repair/sacralspinal ligament on 04/10/2024 The leakage has been better since surgery but at times she will notice leakage that she calls suprises. For example she was at the beach and threw a rock and experienced leakage. She c/o bladder spasms, lower abdominal pain and pelvic floor weakness. During intercourse she feels that she doesn't have any gripping power. SHe feels the cramping low in her pelvis and she did feel this prior to surgery as well. SHe has tried to do the kegels but the next day she will feel vaginal burning. A couple of times she has felt like she had a UTI and it turned out not to be. The cramping makes her feel like she needs to use the bathroom. Sometimes the stream is slow and she wonders if she has emptied completely. Prior Treatments and Tests past medical history of anterior repair/sacralspinal ligament repair 04/10/24 Treatment Goals Patient/Caregiver Goals Treatment goals include strengthening the pelvic floor to reduce symptoms PT-OP-C Subjective Start: 10/31/24 08:41 Freq: Status: Active Protocol: Document 10/31/24 09:00 [facility] (Rec: 10/31/24 17:28 [facility] [id number]) Patient Questionnaires Pelvic Pain and Urgency/Frequency Patient Symptom Scale Pelvic Pain Score 6 OP-PT Pain Assessment Pain Assessment Grid Paper Pain Assessment Grid Completed Yes Location lower abdominal wall, bladder Intensity 4 Description Burning,Cramping Description- Other bladder spams PT-OP-F Manual Assessment Start: 10/31/24 08:41 Freq: Status: Active Protocol: Document 10/31/24 09:00 [facility] (Rec: 11/02/24 08:27 [facility] [id number]) Manual Assessments Soft Tissue Assessment Soft Tissue Mobility Assessment tightness in the suprapubic fascia surrounding the bladder and on the left side of the abdominal wall near the anterior pelvis and descending colon PT-OP-I Pelvic Floor Start: 10/31/24 08:41 Freq: Status: Active Protocol: Document 10/31/24 09:00 [facility] (Rec: 10/31/24 17:22 [facility] [id number]) Pelvic Floor Assessment Urine Pelvic Floor Surgery Yes: anterior repiar Urinary Symptoms Pain Other Urinary Symptoms urinary stress incontinence 4- 5 times per week Leakage Size Medium Other Leakage Causes exercise or can happen without warning, some urge to void Pelvic Clock Pelvic Clock 12-3 Atrophy Pelvic Clock 3-6 Atrophy Pelvic Clock 6-9 Atrophy Pelvic Clock 9-12 Atrophy Contraction Ability Voluntary Contraction Weak Voluntary Relaxation Weak Manual Muscle Testing Left 2 Manual Muscle Testing Right 2 Manual Muscle Testing Anterior 1 Manual Muscle Testing Posterior 2 Muscle Endurance (Seconds) 5 Comments Pelvic Floor Comments pt desribes a buring pain when tightening her pelvic floor however with sensor in for EMG biofeedback she did not experience the burning pain PT-OP-Q Treatments Start: 10/31/24 08:41 Freq: Status: Active Protocol: Document 10/31/24 09:00 [facility] (Rec: 10/31/24 17:17 [facility] [id number]) Therapeutic Exercises Supine Exercises pelvic floor long holds Reps/Minutes 10 reps holding 10 seconds Self-Care/Home Management Treatment Education Patient Education Home Exercise Program,Pain Management Other Education pt was educated on using the vaginal estrogen to help with the buring pain she experiences and using either the vaginal sensor or a egg to squeeze against when performing her pelvic floor as burning was not present with sensor in for today's exercises PT-OP-T Assessment and Plan Start: 10/31/24 08:41 Freq: Status: Active Protocol: Document 10/31/24 09:00 [facility] (Rec: 10/31/24 17:26 [facility] [id number]) Physical Therapy Assessment Rehab Potential Rehabilitation Potential Excellent Evaluation Complexity Number of Personal Factors/Comorbidities 1-2 Number of Body Systems Impaired 3 Clinical Presentation at Evaluation Stable Impairments Impairments Activity Tolerance,Functional Activities,Pain,Soft Tissue Mobility,Strength Goals 3 Impairment pt c/o bladder spasms and lower abdominal cramping pain Mcc Goal (LTG) with MFR techniques Carolyn reports a overall reduction of bladder and lower abdominal cramping pain symptoms LTG Duration 12 weeks 2 Impairment Decreased pelvic floor endurance Short Term Goal (STG) Carolyn is able to sustain a pelvic floor contraction in supine x 10 seconds STG Duration 4 weeks Mcc Goal (LTG) Carolyn is able to sustain a pelvic floor contraction in sitting x 5 seconds LTG Duration 8 weeks 1 Impairment pelvic floor weakness and atrophy Mcc Goal (LTG) Carolyn is able to strengthen her pelvic floor to 3/5 MMT or better for improved support of her pelvic organs and to decrease urinary incontinence LTG Duration 12 weeks Assessment Summary Assessment Carolyn is a 63 year old female who presents to physical therapy with pelvic floor weakness s/p anterior repair/sacrospinal ligament repair. She reports her leakge has been significantly reduced since her surgery . She is feeling weak with her pelvic floor and she will not leakage at times that suprises her. She also has c /o lower abdominal wall cramping and what feels to her like bladder spasm. She has felt symptoms of UTI but when her urine is cultured there is no infection present. She is leaking approx 4-5 times per week. She does report a slow urinary stream at times. With exam today Carolyn presents with weakness and atrophy throughout the levator ani. She test 1/5 MMT for the anterior wall and 2/5 MMT for lateral and posterior del toro. When attempting pelvic floor contraction Carolyn describes a burning sensation. We did start EMG biofeedback today and having the vaginal sensor in decreased Carolyn's symptoms of burning. Endurance is limited and she is unable to hold more than a few seconds with pelvic floor contractions . Carolyn is a good candidate for pelvic PT working towards improved strength and endurance of the pelvic floor. MFR techniques will also be used over the lower abdominal wall to help reduce c/o bladder spasms and pain. Physical Therapy Plan Frequency and Duration Frequency of Treatment 1x/Week Duration of treatment (weeks) 12 Plan of Care Start Date 10/31/24 Plan of Care End Date 01/23/25 Therapeutic Interventions Therapeutic Interventions Home Exercise Program, Neuromuscular Re-education, Patient/Caregiver Education, Self-Care/Home Management,Soft Tissue Mobilization, Therapeutic Exercises Modalities Biofeedback Next Visit Focus/Plan Next Note Type Treatment Note Next Visit Plan pelvic floor strength and endurance training, MFR over the abdominal fasica
--- NOTE | 2024-10-31 16:00 | PT.OPPOC ---
Physical, Occupational & Speech Therapy At [facility] Current Diagnoses Pelvic muscle wasting (10/31/24) Other female genital prolapse (10/31/24) Pelvic and perineal pain (10/31/24) Visit Care Team Role Provider Type Isa Akhtar DO Primary Care Provider Physician Specialty: Family Practice Address: [address] [place] [address], [address], [place], [address] Email: [email or web address] Tomasa Blake PA-C Family Provider Non-Staff Specialty: Medical Address: [address] [place] [address], [id number] Email: Suzy Lowery MD Attending Provider Physician Referring Provider Specialty: Gynecology PROJECT MANAGER SENIOR Obstetrics Address: [address] [place] [address] [address] [place] [address], [id number] Email: [email or web address] Plan Of Care PT-OP-B Current Condition Start: 10/31/24 08:41 Freq: Status: Active Protocol: Document 10/31/24 09:00 [facility] (Rec: 10/31/24 09:15 [facility] [id number]) Current Condition History of Current Condition Onset Date past 2 years Current Complaints weakness in her pelvic floor, cramping History of Current Condition 64 year old female s/p anterior repair/sacralspinal ligament on 04/10/2024 The leakage has been better since surgery but at times she will notice leakage that she calls suprises. For example she was at the beach and threw a rock and experienced leakage. She c/o bladder spasms, lower abdominal pain and pelvic floor weakness. During intercourse she feels that she doesn't have any gripping power. SHe feels the cramping low in her pelvis and she did feel this prior to surgery as well. SHe has tried to do the kegels but the next day she will feel vaginal burning. A couple of times she has felt like she had a UTI and it turned out not to be. The cramping makes her feel like she needs to use the bathroom. Sometimes the stream is slow and she wonders if she has emptied completely. Prior Treatments and Tests past medical history of anterior repair/sacralspinal ligament repair 04/10/24 Treatment Goals Patient/Caregiver Goals Treatment goals include strengthening the pelvic floor to reduce symptoms PT-OP-T Assessment and Plan Start: 10/31/24 08:41 Freq: Status: Active Protocol: Document 10/31/24 09:00 [facility] (Rec: 10/31/24 17:26 [facility] [id number]) Physical Therapy Assessment Rehab Potential Rehabilitation Potential Excellent Evaluation Complexity Number of Personal Factors/Comorbidities 1-2 Number of Body Systems Impaired 3 Clinical Presentation at Evaluation Stable Impairments Impairments Activity Tolerance,Functional Activities,Pain,Soft Tissue Mobility,Strength Goals 3 Impairment pt c/o bladder spasms and lower abdominal cramping pain Skilled Nursing Goal (LTG) with MFR techniques Carolyn reports a overall reduction of bladder and lower abdominal cramping pain symptoms LTG Duration 12 weeks 2 Impairment Decreased pelvic floor endurance Short Term Goal (STG) Carolyn is able to sustain a pelvic floor contraction in supine x 10 seconds STG Duration 4 weeks Skilled Nursing Goal (LTG) Carolyn is able to sustain a pelvic floor contraction in sitting x 5 seconds LTG Duration 8 weeks 1 Impairment pelvic floor weakness and atrophy Skilled Nursing Goal (LTG) Carolyn is able to strengthen her pelvic floor to 3/5 MMT or better for improved support of her pelvic organs and to decrease urinary incontinence LTG Duration 12 weeks Assessment Summary Assessment Carolyn is a 63 year old female who presents to physical therapy with pelvic floor weakness s/p anterior repair/sacrospinal ligament repair. She reports her leakge has been significantly reduced since her surgery . She is feeling weak with her pelvic floor and she will not leakage at times that suprises her. She also has c /o lower abdominal wall cramping and what feels to her like bladder spasm. She has felt symptoms of UTI but when her urine is cultured there is no infection present. She is leaking approx 4-5 times per week. She does report a slow urinary stream at times. With exam today Carolyn presents with weakness and atrophy throughout the levator ani. She test 1/5 MMT for the anterior wall and 2/5 MMT for lateral and posterior del toro. When attempting pelvic floor contraction Carolyn describes a burning sensation. We did start EMG biofeedback today and having the vaginal sensor in decreased Carolyn's symptoms of burning. Endurance is limited and she is unable to hold more than a few seconds with pelvic floor contractions . Carolyn is a good candidate for pelvic PT working towards improved strength and endurance of the pelvic floor. MFR techniques will also be used over the lower abdominal wall to help reduce c/o bladder spasms and pain. Physical Therapy Plan Frequency and Duration Frequency of Treatment 1x/Week Duration of treatment (weeks) 12 Plan of Care Start Date 10/31/24 Plan of Care End Date 01/23/25 Therapeutic Interventions Therapeutic Interventions Home Exercise Program, Neuromuscular Re-education, Patient/Caregiver Education, Self-Care/Home Management,Soft Tissue Mobilization, Therapeutic Exercises Modalities Biofeedback Next Visit Focus/Plan Next Note Type Treatment Note Next Visit Plan pelvic floor strength and endurance training, MFR over the abdominal fasica Plan of Care Dates Plan of Care Start Date 10/31/24 Plan of Care End Date 01/23/25 Electronically Signed by: Martha Husain, PT 11/02/24 [id number] If you are in agreement with this Plan of Care, please return a signed and dated copy. I have reviewed this Plan of Care and certify that the skilled therapy services above are required to meet the patient?s needs. Physician Signature Date Printed Name and Credentials Clinical Instructor Signature Printed Name and Credentials
--- NOTE | 2024-11-14 09:21 | PT.OTN ---
Current Diagnoses Pelvic muscle wasting (11/14/24) Other female genital prolapse (11/14/24) Pelvic and perineal pain (11/14/24) Physical Therapy Treatment Note PT-OP-A Visit Information Start: 10/31/24 08:41 Freq: Status: Active Protocol: Document 11/14/24 08:05 [facility] (Rec: 11/14/24 09:19 [facility] [id number]) Out-Patient Physical Therapy Visit Information Visit Information Visit Type Treatment Note Visit Start Time 08:15 Visit Stop Time 09:00 Visit Number 2 Evaluation Information Evaluation Date 10/31/24 PT-OP-B Current Condition Start: 10/31/24 08:41 Freq: Status: Active Protocol: Document 10/31/24 09:00 [facility] (Rec: 10/31/24 09:15 [facility] [id number]) Current Condition History of Current Condition Onset Date past 2 years Current Complaints weakness in her pelvic floor, cramping History of Current Condition 64 year old female s/p anterior repair/sacralspinal ligament on 04/10/2024 The leakage has been better since surgery but at times she will notice leakage that she calls suprises. For example she was at the beach and threw a rock and experienced leakage. She c/o bladder spasms, lower abdominal pain and pelvic floor weakness. During intercourse she feels that she doesn't have any gripping power. SHe feels the cramping low in her pelvis and she did feel this prior to surgery as well. SHe has tried to do the kegels but the next day she will feel vaginal burning. A couple of times she has felt like she had a UTI and it turned out not to be. The cramping makes her feel like she needs to use the bathroom. Sometimes the stream is slow and she wonders if she has emptied completely. Prior Treatments and Tests past medical history of anterior repair/sacralspinal ligament repair 04/10/24 Treatment Goals Patient/Caregiver Goals Treatment goals include strengthening the pelvic floor to reduce symptoms PT-OP-C Subjective Start: 10/31/24 08:41 Freq: Status: Active Protocol: Document 11/14/24 08:05 [facility] (Rec: 11/14/24 09:20 [facility] [id number]) OP-PT Subjective Patient Comments Patient Comments pt notes she didn't notice much leakage on her cruise but she felt that she had to void frequently PT-OP-F Manual Assessment Start: 10/31/24 08:41 Freq: Status: Active Protocol: Document 10/31/24 09:00 [facility] (Rec: 11/02/24 08:27 [facility] [id number]) Manual Assessments Soft Tissue Assessment Soft Tissue Mobility Assessment tightness in the suprapubic fascia surrounding the bladder and on the left side of the abdominal wall near the anterior pelvis and descending colon PT-OP-I Pelvic Floor Start: 10/31/24 08:41 Freq: Status: Active Protocol: Document 10/31/24 09:00 [facility] (Rec: 10/31/24 17:22 [facility] [id number]) Pelvic Floor Assessment Urine Pelvic Floor Surgery Yes: anterior repiar Urinary Symptoms Pain Other Urinary Symptoms urinary stress incontinence 4- 5 times per week Leakage Size Medium Other Leakage Causes exercise or can happen without warning, some urge to void Pelvic Clock Pelvic Clock 12-3 Atrophy Pelvic Clock 3-6 Atrophy Pelvic Clock 6-9 Atrophy Pelvic Clock 9-12 Atrophy Contraction Ability Voluntary Contraction Weak Voluntary Relaxation Weak Manual Muscle Testing Left 2 Manual Muscle Testing Right 2 Manual Muscle Testing Anterior 1 Manual Muscle Testing Posterior 2 Muscle Endurance (Seconds) 5 Comments Pelvic Floor Comments pt desribes a buring pain when tightening her pelvic floor however with sensor in for EMG biofeedback she did not experience the burning pain PT-OP-Q Treatments Start: 10/31/24 08:41 Freq: Status: Active Protocol: Document 11/14/24 08:05 [facility] (Rec: 11/14/24 09:19 [facility] [id number]) Therapeutic Exercises Supine Exercises ball squeeze with pelvic floor contraction Reps/Minutes 10 reps holding 5 seconds and relaxing 5 seconds hooklying clam shells with theraband Reps/Minutes level 2 TB 2 x 10 reps modified pelvic floor stretch Reps/Minutes hold 1-2 min pelvic floor long holds Supine Exercise Name 5.9 and max of 7.1 Reps/Minutes 10 reps holding 10 seconds Manual Therapy Treatment Consent Patient gave verbal consent for manual Yes treatment Soft Tissue Mobilization MFR over the suprapubic fascia Comments worked on MFR over the suprapubic fascia and bladder, worked on the lateral abdominal del toro, pt. has a history of endometriosis with laparoscopic removal of endometriosis. She is still having abdominal cramping symptoms that are intermittent PT-OP-T Assessment and Plan Start: 10/31/24 08:41 Freq: Status: Active Protocol: Document 11/14/24 08:05 [facility] (Rec: 11/14/24 09:19 [facility] [id number]) Physical Therapy Assessment Goals 3 Impairment pt c/o bladder spasms and lower abdominal cramping pain Glazier Apprentice Goal (LTG) with MFR techniques Carolyn reports a overall reduction of bladder and lower abominal cramping pain symptoms LTG Duration 12 weeks 2 Impairment Decreased pelvic floor endurance Short Term Goal (STG) Carolyn is able to sustain a pelvic floor contraction in supine x 10 seconds STG Duration 4 weeks [facility] Goal (LTG) Carolyn is able to sustain a pelvic floor contraction in sitting x 5 seconds LTG Duration 8 weeks 1 Impairment pelvic floor weakness and atrophy [facility] Goal (LTG) Carolyn is able to strengthen her pelvic floor to 3/5 MMT or better for improved support of her pelvic organs and to decrease urinary incontinence LTG Duration 12 weeks Assessment Summary Assessment With EMG biofeedback today it was difficult for Carolyn to relax fully between pelvic floor contractions. She felt shaky with relaxation especially the last few reps. I added in a modified squat pelvic floor stretch for her as well as hooklying abduction with theraband. There was tightness noted in the suprapubic fascia with MFR. We discussed taking her time with voiding and she was educated on double voiding as she may not be fully emptying all the wall due to tension in the pelvic floor and her complaints of urgency. Carolyn tolerated treatment well and had no c/o vaginal burning with her exercises today Physical Therapy Plan Frequency and Duration Frequency of Treatment 1x/Week Duration of treatment (weeks) 12 Plan of Care Start Date 10/31/24 Plan of Care End Date 01/23/25 Therapeutic Interventions Therapeutic Interventions Home Exercise Program, Neuromuscular Re-education, Patient/Caregiver Education, Self-Care/Home Management,Soft Tissue Mobilization, Therapeutic Exercises Modalities Biofeedback Next Visit Focus/Plan Next Note Type Treatment Note Next Visit Plan continue with MFR techniques over the abdominal wall, check in with how pt is doing with abdominal cramping and vaginal burning symptoms, pelvic floor strength and endurance training
--- NOTE | 2024-11-21 09:03 | PT.OTN ---
Current Diagnoses Pelvic muscle wasting (11/21/24) Other female genital prolapse (11/21/24) Pelvic and perineal pain (11/21/24) Physical Therapy Treatment Note PT-OP-A Visit Information Start: 10/31/24 08:41 Freq: Status: Active Protocol: Document 11/21/24 08:46 [facility] (Rec: 11/21/24 09:03 [facility] [id number]) Out-Patient Physical Therapy Visit Information Visit Information Visit Type Treatment Note Visit Start Time 08:15 Visit Stop Time 09:00 Visit Number 3 PT-OP-B Current Condition Start: 10/31/24 08:41 Freq: Status: Active Protocol: Document 10/31/24 09:00 [facility] (Rec: 10/31/24 09:15 [facility] [id number]) Current Condition History of Current Condition Onset Date past 2 years Current Complaints weakness in her pelvic floor, cramping History of Current Condition 64 year old female s/p anterior repair/sacralspinal ligament on 04/10/2024 The leakage has been better since surgery but at times she will notice leakage that she calls suprises. For example she was at the beach and threw a rock and experienced leakage. She c/o bladder spasms, lower abdominal pain and pelvic floor weakness. During intercourse she feels that she doesn't have any gripping power. SHe feels the cramping low in her pelvis and she did feel this prior to surgery as well. SHe has tried to do the kegels but the next day she will feel vaginal burning. A couple of times she has felt like she had a UTI and it turned out not to be. The cramping makes her feel like she needs to use the bathroom. Sometimes the stream is slow and she wonders if she has emptied completely. Prior Treatments and Tests past medical history of anterior repair/sacralspinal ligament repair 04/10/24 Treatment Goals Patient/Caregiver Goals Treatment goals include strengthening the pelvic floor to reduce symptoms PT-OP-C Subjective Start: 10/31/24 08:41 Freq: Status: Active Protocol: Document 11/21/24 08:46 [facility] (Rec: 11/21/24 09:03 [facility] [id number]) OP-PT Subjective Patient Comments Patient Comments pt notes she leaked when [place] PT-OP-F Manual Assessment Start: 10/31/24 08:41 Freq: Status: Active Protocol: Document 10/31/24 09:00 [facility] (Rec: 11/02/24 08:27 [facility] [id number]) Manual Assessments Soft Tissue Assessment Soft Tissue Mobility Assessment tightness in the suprapubic fascia surrounding the bladder and on the left side of the abdominal wall near the anterior pelvis and descending colon PT-OP-I Pelvic Floor Start: 10/31/24 08:41 Freq: Status: Active Protocol: Document 10/31/24 09:00 [facility] (Rec: 10/31/24 17:22 [facility] [id number]) Pelvic Floor Assessment Urine Pelvic Floor Surgery Yes: anterior repiar Urinary Symptoms Pain Other Urinary Symptoms urinary stress incontinence 4- 5 times per week Leakage Size Medium Other Leakage Causes exercise or can happen without warning, some urge to void Pelvic Clock Pelvic Clock 12-3 Atrophy Pelvic Clock 3-6 Atrophy Pelvic Clock 6-9 Atrophy Pelvic Clock 9-12 Atrophy Contraction Ability Voluntary Contraction Weak Voluntary Relaxation Weak Manual Muscle Testing Left 2 Manual Muscle Testing Right 2 Manual Muscle Testing Anterior 1 Manual Muscle Testing Posterior 2 Muscle Endurance (Seconds) 5 Comments Pelvic Floor Comments pt desribes a buring pain when tightening her pelvic floor however with sensor in for EMG biofeedback she did not experience the burning pain PT-OP-Q Treatments Start: 10/31/24 08:41 Freq: Status: Active Protocol: Document 11/21/24 08:46 [facility] (Rec: 11/21/24 09:03 [facility] [id number]) Therapeutic Exercises Supine Exercises templates for eccentric control Reps/Minutes x 5 min hip flexor stretching Reps/Minutes holding in mikki test position pelvic floor long holds Reps/Minutes 10 reps holding 10 seconds Manual Therapy Treatment Consent Patient gave verbal consent for manual Yes treatment Soft Tissue Mobilization MFR over the suprapubic fascia Comments worked on MFR over the suprapubic fascia and bladder, worked on the lateral abdominal del toro, pt. has a history of endometriosis with laparoscopic removal of endometriosis. She is still having abdominal cramping symptoms that are intermittent PT-OP-T Assessment and Plan Start: 10/31/24 08:41 Freq: Status: Active Protocol: Document 11/21/24 08:46 [facility] (Rec: 11/21/24 09:03 [facility] [id number]) Physical Therapy Assessment Assessment Summary Assessment worked on releasing the iliopsoas today, Rebeccca was tighter on the right quad and left iliopsoas, worked on adding in eccentric control and coordination. Letting go and relaxing got easier for her after a few reps of her long holds today Physical Therapy Plan Frequency and Duration Frequency of Treatment 1x/Week Duration of treatment (weeks) 12 Plan of Care Start Date 10/31/24 Plan of Care End Date 01/23/25 Therapeutic Interventions Therapeutic Interventions Home Exercise Program, Neuromuscular Re-education, Patient/Caregiver Education, Self-Care/Home Management,Soft Tissue Mobilization, Therapeutic Exercises Modalities Biofeedback Next Visit Focus/Plan Next Note Type Treatment Note Next Visit Plan continue with MFR techniques over the abdominal wall, check in with how pt is doing with abdominal cramping and vaginal burning symptoms, pelvic floor strength and endurance training. Check in with how pt did with hiking in [place]
--- NOTE | 2024-12-07 08:15 | PT.OTN ---
Current Diagnoses Pelvic muscle wasting (12/07/24) Other female genital prolapse (12/07/24) Pelvic and perineal pain (12/07/24) Physical Therapy Treatment Note PT-OP-A Visit Information Start: 10/31/24 08:41 Freq: Status: Active Protocol: Document 12/07/24 08:15 [facility] (Rec: 12/13/24 12:40 [facility] [id number]) Out-Patient Physical Therapy Visit Information Visit Information Visit Type Treatment Note Visit Start Time 08:15 Visit Stop Time 09:00 Visit Number 4 Evaluation Information Evaluation Date 10/31/24 PT-OP-B Current Condition Start: 10/31/24 08:41 Freq: Status: Active Protocol: Document 10/31/24 09:00 [facility] (Rec: 10/31/24 09:15 [facility] [id number]) Current Condition History of Current Condition Onset Date past 2 years Current Complaints weakness in her pelvic floor, cramping History of Current Condition 64 year old female s/p anterior repair/sacralspinal ligament on 04/10/2024 The leakage has been better since surgery but at times she will notice leakage that she calls suprises. For example she was at the beach and threw a rock and experienced leakage. She c/o bladder spasms, lower abdominal pain and pelvic floor weakness. During intercourse she feels that she doesn't have any gripping power. SHe feels the cramping low in her pelvis and she did feel this prior to surgery as well. SHe has tried to do the kegels but the next day she will feel vaginal burning. A couple of times she has felt like she had a UTI and it turned out not to be. The cramping makes her feel like she needs to use the bathroom. Sometimes the stream is slow and she wonders if she has emptied completely. Prior Treatments and Tests past medical history of anterior repair/sacralspinal ligament repair 04/10/24 Treatment Goals Patient/Caregiver Goals Treatment goals include strengthening the pelvic floor to reduce symptoms PT-OP-C Subjective Start: 10/31/24 08:41 Freq: Status: Active Protocol: Document 12/07/24 08:15 [facility] (Rec: 12/07/24 09:01 [facility] [id number]) OP-PT Subjective Patient Comments Patient Comments Carolyn notes she did experience 1-2 times where she would leak suddenly while in [place]. SHe also reports that there is a spont on her left lower abdominal wall that [place] on[place]. THis is the area that is cramping. PT-OP-F Manual Assessment Start: 10/31/24 08:41 Freq: Status: Active Protocol: Document 10/31/24 09:00 [facility] (Rec: 11/02/24 08:27 [facility] [id number]) Manual Assessments Soft Tissue Assessment Soft Tissue Mobility Assessment tightness in the suprapubic fascia surrounding the bladder and on the left side of the abdominal wall near the anterior pelvis and descending colon PT-OP-I Pelvic Floor Start: 10/31/24 08:41 Freq: Status: Active Protocol: Document 10/31/24 09:00 [facility] (Rec: 10/31/24 17:22 [facility] [id number]) Pelvic Floor Assessment Urine Pelvic Floor Surgery Yes: anterior repiar Urinary Symptoms Pain Other Urinary Symptoms urinary stress incontinence 4- 5 times per week Leakage Size Medium Other Leakage Causes exercise or can happen without warning, some urge to void Pelvic Clock Pelvic Clock 12-3 Atrophy Pelvic Clock 3-6 Atrophy Pelvic Clock 6-9 Atrophy Pelvic Clock 9-12 Atrophy Contraction Ability Voluntary Contraction Weak Voluntary Relaxation Weak Manual Muscle Testing Left 2 Manual Muscle Testing Right 2 Manual Muscle Testing Anterior 1 Manual Muscle Testing Posterior 2 Muscle Endurance (Seconds) 5 Comments Pelvic Floor Comments pt desribes a buring pain when tightening her pelvic floor however with sensor in for EMG biofeedback she did not experience the burning pain PT-OP-Q Treatments Start: 10/31/24 08:41 Freq: Status: Active Protocol: Document 12/07/24 08:15 [facility] (Rec: 12/07/24 09:01 [facility] [id number]) Therapeutic Exercises Supine Exercises templates for eccentric control Reps/Minutes x 5 min hip flexor stretching Supine Exercise Name HEP ball squeeze with pelvic floor contraction Reps/Minutes 10 reps holding 10 seconds and relaxing 10 seconds modified pelvic floor stretch Supine Exercise Name HEP pelvic floor long holds Supine Exercise Name 7.3 and 12.2 Reps/Minutes 10 reps holding 10 seconds Self-Care/Home Management Treatment Education Patient Education Home Exercise Program Other Education time was spent going over bladder irritants as well as discussing left sided abdominal cramping and spasm. PT-OP-T Assessment and Plan Start: 10/31/24 08:41 Freq: Status: Active Protocol: Document 12/07/24 08:15 [facility] (Rec: 12/13/24 12:45 [facility] [id number]) Physical Therapy Assessment Assessment Summary Assessment Carolyn had mentioned that she had a few episodes where she lost urine suddenly without warning. We talked again about bladder irritants and how coffee may make her more susceptible to bladder irritation and leakage and I encouraged her to make sure she is drinking water before and after the coffee to calm down any bladder irritation if she is not wanting to hold off on the coffee. Physical Therapy Plan Frequency and Duration Frequency of Treatment 1x/Week Duration of treatment (weeks) 12 Plan of Care Start Date 10/31/24 Plan of Care End Date 01/23/25 Therapeutic Interventions Therapeutic Interventions Home Exercise Program, Neuromuscular Re-education, Patient/Caregiver Education, Self-Care/Home Management,Soft Tissue Mobilization, Therapeutic Exercises Modalities Biofeedback Next Visit Focus/Plan Next Note Type Treatment Note Next Visit Plan continue with MFR techniques over the abdominal wall, check in with how pt is doing with abdominal cramping and vaginal burning symptoms, pelvic floor strength and endurance training.
--- NOTE | 2024-12-14 10:03 | PT.OTN ---
Current Diagnoses Pelvic muscle wasting (12/14/24) Other female genital prolapse (12/14/24) Pelvic and perineal pain (12/14/24) Physical Therapy Treatment Note PT-OP-A Visit Information Start: 10/31/24 08:41 Freq: Status: Active Protocol: Document 12/14/24 08:16 [facility] (Rec: 12/14/24 08:57 [facility] [id number]) Out-Patient Physical Therapy Visit Information Visit Information Visit Type Treatment Note Visit Start Time 08:15 Visit Stop Time 09:00 Visit Number 5 PT-OP-B Current Condition Start: 10/31/24 08:41 Freq: Status: Active Protocol: Document 10/31/24 09:00 [facility] (Rec: 10/31/24 09:15 [facility] [id number]) Current Condition History of Current Condition Onset Date past 2 years Current Complaints weakness in her pelvic floor, cramping History of Current Condition 64 year old female s/p anterior repair/sacralspinal ligament on 04/10/2024 The leakage has been better since surgery but at times she will notice leakage that she calls suprises. For example she was at the beach and threw a rock and experienced leakage. She c/o bladder spasms, lower abdominal pain and pelvic floor weakness. During intercourse she feels that she doesn't have any gripping power. SHe feels the cramping low in her pelvis and she did feel this prior to surgery as well. SHe has tried to do the kegels but the next day she will feel vaginal burning. A couple of times she has felt like she had a UTI and it turned out not to be. The cramping makes her feel like she needs to use the bathroom. Sometimes the stream is slow and she wonders if she has emptied completely. Prior Treatments and Tests past medical history of anterior repair/sacralspinal ligament repair 04/10/24 Treatment Goals Patient/Caregiver Goals Treatment goals include strengthening the pelvic floor to reduce symptoms PT-OP-C Subjective Start: 10/31/24 08:41 Freq: Status: Active Protocol: Document 12/14/24 08:16 [facility] (Rec: 12/14/24 08:57 [facility] [id number]) OP-PT Subjective Patient Comments Patient Comments pt notes she has been feeling fine this week and she has been doing her pelvic floor and at least doing that daily. Two times sudden leaks. PT-OP-F Manual Assessment Start: 10/31/24 08:41 Freq: Status: Active Protocol: Document 10/31/24 09:00 [facility] (Rec: 11/02/24 08:27 [facility] [id number]) Manual Assessments Soft Tissue Assessment Soft Tissue Mobility Assessment tightness in the suprapubic fascia surrounding the bladder and on the left side of the abdominal wall near the anterior pelvis and descending colon PT-OP-I Pelvic Floor Start: 10/31/24 08:41 Freq: Status: Active Protocol: Document 10/31/24 09:00 [facility] (Rec: 10/31/24 17:22 [facility] [id number]) Pelvic Floor Assessment Urine Pelvic Floor Surgery Yes: anterior repiar Urinary Symptoms Pain Other Urinary Symptoms urinary stress incontinence 4- 5 times per week Leakage Size Medium Other Leakage Causes exercise or can happen without warning, some urge to void Pelvic Clock Pelvic Clock 12-3 Atrophy Pelvic Clock 3-6 Atrophy Pelvic Clock 6-9 Atrophy Pelvic Clock 9-12 Atrophy Contraction Ability Voluntary Contraction Weak Voluntary Relaxation Weak Manual Muscle Testing Left 2 Manual Muscle Testing Right 2 Manual Muscle Testing Anterior 1 Manual Muscle Testing Posterior 2 Muscle Endurance (Seconds) 5 Comments Pelvic Floor Comments pt desribes a buring pain when tightening her pelvic floor however with sensor in for EMG biofeedback she did not experience the burning pain PT-OP-Q Treatments Start: 10/31/24 08:41 Freq: Status: Active Protocol: Document 12/14/24 08:16 [facility] (Rec: 12/14/24 08:57 [facility] [id number]) Therapeutic Exercises Supine Exercises templates for eccentric control Reps/Minutes x 5 min hip flexor stretching Supine Exercise Name HEP ball squeeze with pelvic floor contraction Supine Exercise Name resting tone at baseline Reps/Minutes 10 reps holding 10 relaxing Comments 8.1 and max of 12 pelvic floor long holds Supine Exercise Name average 9.4 and max 13.7 Reps/Minutes 10 reps holding 10 sec Sidelying Exercises clam shells Reps/Minutes 2 x 10 reps PT-OP-T Assessment and Plan Start: 10/31/24 08:41 Freq: Status: Active Protocol: Document 12/14/24 09:59 [facility] (Rec: 12/14/24 10:03 [facility] [id number]) Physical Therapy Assessment Assessment Summary Assessment Carolyn reports she spent more time working on pelvic floor this week and she did show increased endurance and strength on EMG biofeedback. She is able to recruit just as much on her own now as with the ball so she can DC adductor assist at home if she is feeling good anterior pelvic floor contraction on her own. We spent time working on eccentric control and resting tone. She is able to relax to baseline now but it takes at times longer than 10 seconds to get there. I encouraged more time with resting for home in between contractions. I added in clam shells today and these are much more challenging than the hooklying clam shells Physical Therapy Plan Frequency and Duration Frequency of Treatment 1x/Week Duration of treatment (weeks) 12 Plan of Care Start Date 10/31/24 Plan of Care End Date 01/23/25 Therapeutic Interventions Therapeutic Interventions Home Exercise Program, Neuromuscular Re-education, Patient/Caregiver Education, Self-Care/Home Management,Soft Tissue Mobilization, Therapeutic Exercises Modalities Biofeedback Next Visit Focus/Plan Next Note Type Treatment Note Next Visit Plan continue progressive strength for pelvic floor, work on squats with pelvic floor activation on the way up, add in quick contractions
--- NOTE | 2025-01-04 11:20 | PT.OTN ---
Current Diagnoses Pelvic muscle wasting (01/04/25) Other female genital prolapse (01/04/25) Pelvic and perineal pain (01/04/25) Physical Therapy Treatment Note PT-OP-A Visit Information Start: 10/31/24 08:41 Freq: Status: Active Protocol: Document 01/04/25 08:15 [facility] (Rec: 01/04/25 08:37 [facility] [id number]) Out-Patient Physical Therapy Visit Information Visit Information Visit Type Progress Note Visit Start Time 08:15 Visit Stop Time 09:00 Visit Number 6 PT-OP-B Current Condition Start: 10/31/24 08:41 Freq: Status: Active Protocol: Document 10/31/24 09:00 [facility] (Rec: 10/31/24 09:15 [facility] [id number]) Current Condition History of Current Condition Onset Date past 2 years Current Complaints weakness in her pelvic floor, cramping History of Current 64 year old female s/p anterior repair/sacralspinal Condition ligament on 04/10/2024 The leakage has been better since surgery but at times she will notice leakage that she calls suprises. For example she was at the beach and threw a rock and experienced leakage. She c/o bladder spasms, lower abdominal pain and pelvic floor weakness. During intercourse she feels that she doesn't have any gripping power. SHe feels the cramping low in her pelvis and she did feel this prior to surgery as well. SHe has tried to do the kegels but the next day she will feel vaginal burning. A couple of times she has felt like she had a UTI and it turned out not to be. The cramping makes her feel like she needs to use the bathroom. Sometimes the stream is slow and she wonders if she has emptied completely. Prior Treatments and past medical history of anterior repair/sacralspinal Tests ligament repair 04/10/24 Treatment Goals Patient/Caregiver Treatment goals include strengthening the pelvic floor Goals to reduce symptoms PT-OP-C Subjective Start: 10/31/24 08:41 Freq: Status: Active Protocol: Document 01/04/25 08:15 [facility] (Rec: 01/04/25 08:37 [facility] [id number]) OP-PT Subjective Patient Comments Patient Comments pt had 2 UTI's back to back so hasn't been doing her exercises these past few weeks PT-OP-F Manual Assessment Start: 10/31/24 08:41 Freq: Status: Active Protocol: Document 10/31/24 09:00 [facility] (Rec: 11/02/24 08:27 [facility] [id number]) Manual Assessments Soft Tissue Assessment Soft Tissue Mobility tightness in the suprapubic fascia surrounding the Assessment bladder and on the left side of the abdominal wall near the anterior pelvis and descending colon PT-OP-I Pelvic Floor Start: 10/31/24 08:41 Freq: Status: Active Protocol: Document 10/31/24 09:00 [facility] (Rec: 10/31/24 17:22 [facility] [id number]) Pelvic Floor Assessment Urine Pelvic Floor Surgery Yes: anterior repiar Urinary Symptoms Pain Other Urinary urinary stress incontinence 4-5 times per week Symptoms Leakage Size Medium Other Leakage Causes exercise or can happen without warning, some urge to void Pelvic Clock Pelvic Clock 12-3 Atrophy Pelvic Clock 3-6 Atrophy Pelvic Clock 6-9 Atrophy Pelvic Clock 9-12 Atrophy Contraction Ability Voluntary Weak Contraction Voluntary Relaxation Weak Manual Muscle 2 Testing Left Manual Muscle 2 Testing Right Manual Muscle 1 Testing Anterior Manual Muscle 2 Testing Posterior Muscle Endurance ( 5 Seconds) Comments Pelvic Floor pt desribes a buring pain when tightening her pelvic Comments floor however with sensor in for EMG biofeedback she did not experience the burning pain PT-OP-Q Treatments Start: 10/31/24 08:41 Freq: Status: Active Protocol: Document 01/04/25 08:15 [facility] (Rec: 01/04/25 09:01 [facility] [id number]) Therapeutic Exercises Supine Exercises ball squeeze with pelvic floor contraction Supine Exercise Name resting tone at baseline Reps/Minutes 10 reps holding 10 relaxing Comments 8.1 and max of 12 pelvic floor long holds Supine Exercise Name 7.6 and max of 11.9 Reps/Minutes 10 reps holding 10 sec Sidelying Exercises clam shells Reps/Minutes 2 x 10 reps Other Exercises dynamic adductor stretch Other Exercise Name hands and knee position with leg to be stretch extended Reps/Minutes x 10 res Comments cues to rock back toward heels Self-Care/Home Management Treatment Education Patient Education Home Exercise Program,Pain Management Activities Self-Care/Home time was spent on discussing vaginal tissue irritation Management after and during her UTI, pelvic floor feels like it Activities guards and gets irritated with the UTI. We discussed avoiding bladder irritants and working on hip opening to relax the pelvic floor. Carolyn was given a hand out for dynamic adductor stretching as she tends to guard in her adductors and does better after contract/ relax PT-OP-T Assessment and Plan Start: 10/31/24 08:41 Freq: Status: Active Protocol: Document 01/04/25 08:15 [facility] (Rec: 01/04/25 08:37 [facility] [id number]) Physical Therapy Assessment Goals 3 Impairment pt c/o bladder spasms and lower abdominal cramping pain , then pelvic floor tightened up. She went back to sitting on a bottle to try and release the pelvic floor . Intermediate Goal (LTG) with MFR techniques Carolyn reports a overall reduction of bladder and lower abdominal cramping pain symptoms overall these symptoms have improved however Carolyn has recently had 2 UTI's back to back and this increased tissue irritation and bladder irritation again LTG Duration 12 weeks 2 Impairment Decreased pelvic floor endurance Short Term Goal (STG Carolyn is able to sustain a pelvic floor contraction ) in supine x 10 seconds excellent progress STG Duration 4 weeks Intermediate Goal (LTG) Carolyn is able to sustain a pelvic floor contraction in sitting x 5 seconds good progress, pt still feels more control in supine LTG Duration 8 weeks 1 Impairment pelvic floor weakness and 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 She was making steady progress with improved strength and slowing decreasing c/o bladder spasms and anterior pelvis cramping however she recently had back to back UTI's that set her back these past 3 weeks. She also still has left sided abdominal wall tightness/irritation that seems to be ongoing for her. She is doing better with pelvic floor relaxation and is working on her stretches for home along with pelvic floor strengthening. Carolyn would benefit from continued PT. Physical Therapy Plan Frequency and Duration Frequency of 1x/Week Treatment Duration of 8 treatment (weeks) Plan of Care Start 01/04/25 Date Plan of Care End 03/01/25 Date Therapeutic Interventions Therapeutic Home Exercise Program,Neuromuscular Re-education, Interventions Patient/Caregiver Education,Self-Care/Home Management, Soft Tissue Mobilization,Therapeutic Exercises Modalities Biofeedback Next Visit Focus/Plan Next Note Type Treatment Note Next Visit Plan continue progressive strength for pelvic floor, work on squats with pelvic floor activation on the way up, add in quick contractions
--- NOTE | 2025-01-04 11:21 | PT.OPPOC ---
Physical, Occupational & Speech Therapy At [facility] Current Diagnoses Pelvic muscle wasting (01/04/25) Other female genital prolapse (01/04/25) Pelvic and perineal pain (01/04/25) Visit Care Team Role Provider Type Isa Akhtar DO Primary Care Provider Physician Specialty: Family Practice Address: [address] [place] [address], [address], [place], [address] Email: [email or web address] Tomasa Blake PA-C Family Provider Non-Staff Specialty: Medical Address: [address] [place] [address], [id number] Email: Suzy Lowery MD Attending Provider Physician Referring Provider Specialty: Gynecology [facility] Address: [address] [place] [address] [address] [place] [address], [id number] Email: [email or web address] Plan Of Care PT-OP-B Current Condition Start: 10/31/24 08:41 Freq: Status: Active Protocol: Document 10/31/24 09:00 [facility] (Rec: 10/31/24 09:15 [facility] [id number]) Current Condition History of Current Condition Onset Date past 2 years Current Complaints weakness in her pelvic floor, cramping History of Current 64 year old female s/p anterior repair/sacralspinal Condition ligament on 04/10/2024 The leakage has been better since surgery but at times she will notice leakage that she calls surprises. For example she was at the beach and threw a rock and experienced leakage. She c/o bladder spasms, lower abdominal pain and pelvic floor weakness. During intercourse she feels that she doesn't have any gripping power. SHe feels the cramping low in her pelvis and she did feel this prior to surgery as well. SHe has tried to do the kegels but the next day she will feel vaginal burning. A couple of times she has felt like she had a UTI and it turned out not to be. The cramping makes her feel like she needs to use the bathroom. Sometimes the stream is slow and she wonders if she has emptied completely. Prior Treatments and past medical history of anterior repair/sacralspinal Tests ligament repair 04/10/24 Treatment Goals Patient/Caregiver Treatment goals include strengthening the pelvic floor Goals to reduce symptoms PT-OP-T Assessment and Plan Start: 10/31/24 08:41 Freq: Status: Active Protocol: Document 01/04/25 08:15 [facility] (Rec: 01/04/25 08:37 [facility] [id number]) Physical Therapy Assessment Goals 3 Impairment pt c/o bladder spasms and lower abdominal cramping pain , then pelvic floor tightened up. She went back to sitting on a bottle to try and release the pelvic floor . City Route Driver Goal (LTG) with MFR techniques Carolyn reports a overall reduction of bladder and lower abdominal cramping pain symptoms overall these symptoms have improved however Carolyn has recently had 2 UTI's back to back and this increased tissue irritation and bladder irritation again LTG Duration 12 weeks 2 Impairment Decreased pelvic floor endurance Short Term Goal (STG Carolyn is able to sustain a pelvic floor contraction ) in supine x 10 seconds excellent progress STG Duration 4 weeks [address] Driver Goal (LTG) Carolyn is able to sustain a pelvic floor contraction in sitting x 5 seconds good progress, pt still feels more control in supine LTG Duration 8 weeks 1 Impairment pelvic floor weakness and atrophy Intermediate Goal (LTG) Carolyn is able to strengthen her pelvic floor to 3/5 MMT or better for improved support of her pelvic organs and to decrease urinary incontinence Slowly improving LTG Duration 12 weeks Assessment Summary Assessment Carolyn has been seen x 6 visits in PT. She was making steady progress with improved strength and slowing decreasing c/o bladder spasms and anterior pelvis cramping however she recently had back to back UTI's that set her back these past 3 weeks. She also still has left sided abdominal wall tightness/irritation that seems to be ongoing for her. She is doing better with pelvic floor relaxation and is working on her stretches for home along with pelvic floor strengthening. Carolyn would benefit from continued PT. Physical Therapy Plan Frequency and Duration Frequency of 1x/Week Treatment Duration of 8 treatment (weeks) Plan of Care Start 01/04/25 Date Plan of Care End 03/01/25 Date Therapeutic Interventions Therapeutic Home Exercise Program,Neuromuscular Re-education, Interventions Patient/Caregiver Education,Self-Care/Home Management, Soft Tissue Mobilization,Therapeutic Exercises Modalities Biofeedback Next Visit Focus/Plan Next Note Type Treatment Note Next Visit Plan continue progressive strength for pelvic floor, work on squats with pelvic floor activation on the way up, add in quick contractions Plan of Care Dates Plan of Care Start Date 01/04/25 Plan of Care End Date 03/01/25 Electronically Signed by: Martha Husain, PT 01/04/25 [id number] If you are in agreement with this Plan of Care, please return a signed and dated copy. I have reviewed this Plan of Care and certify that the skilled therapy services above are required to meet the patient?s needs. Physician Signature Date Printed Name and Credentials Clinical Instructor Signature Printed Name and Credentials
--- NOTE | 2025-01-11 12:00 | PT.OTN ---
Current Diagnoses Pelvic muscle wasting (01/11/25) Other female genital prolapse (01/11/25) Pelvic and perineal pain (01/11/25) Physical Therapy Treatment Note PT-OP-A Visit Information Start: 10/31/24 08:41 Freq: Status: Active Protocol: Document 01/11/25 08:13 [facility] (Rec: 01/11/25 08:53 [facility] [id number]) Out-Patient Physical Therapy Visit Information Visit Information Visit Type Treatment Note Visit Start Time 08:15 Visit Stop Time 09:00 Visit Number 7 PT-OP-B Current Condition Start: 10/31/24 08:41 Freq: Status: Active Protocol: Document 10/31/24 09:00 [facility] (Rec: 10/31/24 09:15 [facility] [id number]) Current Condition History of Current Condition Onset Date past 2 years Current Complaints weakness in her pelvic floor, cramping History of Current 64 year old female s/p anterior repair/sacralspinal Condition ligament on 04/10/2024 The leakage has been better since surgery but at times she will notice leakage that she calls suprises. For example she was at the beach and threw a rock and experienced leakage. She c/o bladder spasms, lower abdominal pain and pelvic floor weakness. During intercourse she feels that she doesn't have any gripping power. SHe feels the cramping low in her pelvis and she did feel this prior to surgery as well. SHe has tried to do the kegels but the next day she will feel vaginal burning. A couple of times she has felt like she had a UTI and it turned out not to be. The cramping makes her feel like she needs to use the bathroom. Sometimes the stream is slow and she wonders if she has emptied completely. Prior Treatments and past medical history of anterior repair/sacralspinal Tests ligament repair 04/10/24 Treatment Goals Patient/Caregiver Treatment goals include strengthening the pelvic floor Goals to reduce symptoms PT-OP-C Subjective Start: 10/31/24 08:41 Freq: Status: Active Protocol: Document 01/11/25 08:13 [facility] (Rec: 01/11/25 08:53 [facility] [id number]) OP-PT Subjective Patient Comments Patient Comments pt notes her vaginal tissue is still inflammed and she felt little bumps PT-OP-F Manual Assessment Start: 10/31/24 08:41 Freq: Status: Active Protocol: Document 10/31/24 09:00 [facility] (Rec: 11/02/24 08:27 [facility] [id number]) Manual Assessments Soft Tissue Assessment Soft Tissue Mobility tightness in the suprapubic fascia surrounding the Assessment bladder and on the left side of the abdominal wall near the anterior pelvis and descending colon PT-OP-I Pelvic Floor Start: 10/31/24 08:41 Freq: Status: Active Protocol: Document 10/31/24 09:00 [facility] (Rec: 10/31/24 17:22 [facility] [id number]) Pelvic Floor Assessment Urine Pelvic Floor Surgery Yes: anterior repiar Urinary Symptoms Pain Other Urinary urinary stress incontinence 4-5 times per week Symptoms Leakage Size Medium Other Leakage Causes exercise or can happen without warning, some urge to void Pelvic Clock Pelvic Clock 12-3 Atrophy Pelvic Clock 3-6 Atrophy Pelvic Clock 6-9 Atrophy Pelvic Clock 9-12 Atrophy Contraction Ability Voluntary Weak Contraction Voluntary Relaxation Weak Manual Muscle 2 Testing Left Manual Muscle 2 Testing Right Manual Muscle 1 Testing Anterior Manual Muscle 2 Testing Posterior Muscle Endurance ( 5 Seconds) Comments Pelvic Floor pt desribes a buring pain when tightening her pelvic Comments floor however with sensor in for EMG biofeedback she did not experience the burning pain PT-OP-Q Treatments Start: 10/31/24 08:41 Freq: Status: Active Protocol: Document 01/11/25 08:13 [facility] (Rec: 01/11/25 08:53 [facility] [id number]) Therapeutic Exercises Supine Exercises templates for eccentric control Reps/Minutes x 5 min ball squeeze with pelvic floor contraction Supine Exercise Name resting tone at baseline Reps/Minutes 10 reps holding 10 relaxing Comments 10.6 and max of 18.2 pelvic floor long holds Supine Exercise Name 8.5 and max of 13.4 Reps/Minutes 10 sec hold and 10 sec rest Self-Care/Home Management Treatment Education Patient Education Home Exercise Program,Pain Management Other Education discussed use of julva cream to help decrease tissue irritation as well as probiotics to help following use of 2 rounds of antibiotics after her UTI's PT-OP-T Assessment and Plan Start: 10/31/24 08:41 Freq: Status: Active Protocol: Document 01/11/25 11:54 [facility] (Rec: 01/11/25 11:55 [facility] [id number]) Physical Therapy Assessment Assessment Summary Assessment Carolyn is still feeling irritated tissue from after her UTI. We did talk about using a cream such as julva cream to help decrease tissue irritation. She did do better today with her pelvic floor strength as compared to last visit. Physical Therapy Plan Frequency and Duration Frequency of 1x/Week Treatment Duration of 8 treatment (weeks) Plan of Care Start 01/04/25 Date Plan of Care End 03/01/25 Date Therapeutic Interventions Therapeutic Home Exercise Program,Neuromuscular Re-education, Interventions Patient/Caregiver Education,Self-Care/Home Management, Soft Tissue Mobilization,Therapeutic Exercises Modalities Biofeedback Next Visit Focus/Plan Next Note Type Treatment Note Next Visit Plan continue progressive strength for pelvic floor, work on squats with pelvic floor activation on the way up, add in quick contractions
--- NOTE | 2025-01-30 08:46 | PT.OTN ---
Current Diagnoses Pelvic muscle wasting (01/30/25) Other female genital prolapse (01/30/25) Pelvic and perineal pain (01/30/25) Physical Therapy Treatment Note PT-OP-A Visit Information Start: 10/31/24 08:41 Freq: Status: Active Protocol: Document 01/30/25 08:15 [facility] (Rec: 01/30/25 08:46 [facility] [id number]) Out-Patient Physical Therapy Visit Information Visit Information Visit Note 15 min only as pt was dealing with active infection and not able to go through exercises with biofeedback today Visit Start Time 08:15 Visit Stop Time 08:30 Visit Number 8 PT-OP-B Current Condition Start: 10/31/24 08:41 Freq: Status: Active Protocol: Document 10/31/24 09:00 [facility] (Rec: 10/31/24 09:15 [facility] [id number]) Current Condition History of Current Condition Onset Date past 2 years Current Complaints weakness in her pelvic floor, cramping History of Current 64 year old female s/p anterior repair/sacralspinal Condition ligament on 04/10/2024 The leakage has been better since surgery but at times she will notice leakage that she calls suprises. For example she was at the beach and threw a rock and experienced leakage. She c/o bladder spasms, lower abdominal pain and pelvic floor weakness. During intercourse she feels that she doesn't have any gripping power. SHe feels the cramping low in her pelvis and she did feel this prior to surgery as well. SHe has tried to do the kegels but the next day she will feel vaginal burning. A couple of times she has felt like she had a UTI and it turned out not to be. The cramping makes her feel like she needs to use the bathroom. Sometimes the stream is slow and she wonders if she has emptied completely. Prior Treatments and past medical history of anterior repair/sacralspinal Tests ligament repair 04/10/24 Treatment Goals Patient/Caregiver Treatment goals include strengthening the pelvic floor Goals to reduce symptoms PT-OP-C Subjective Start: 10/31/24 08:41 Freq: Status: Active Protocol: Document 01/30/25 08:15 [facility] (Rec: 01/30/25 08:46 [facility] [id number]) OP-PT Subjective Patient Comments Patient Comments pt notes she had 3 UTI's in a row and she had her appt with dr wlison and she was told she had a yeast infection. She will be adding in estrogen cream. She feels that she has been sick for the last month. She hasn't had much problems with leakage. Carolyn would like to continue PT but would like to wait until her next nathalie 02/06/25 PT-OP-F Manual Assessment Start: 10/31/24 08:41 Freq: Status: Active Protocol: Document 10/31/24 09:00 [facility] (Rec: 11/02/24 08:27 [facility] [id number]) Manual Assessments Soft Tissue Assessment Soft Tissue Mobility tightness in the suprapubic fascia surrounding the Assessment bladder and on the left side of the abdominal wall near the anterior pelvis and descending colon PT-OP-I Pelvic Floor Start: 10/31/24 08:41 Freq: Status: Active Protocol: Document 10/31/24 09:00 [facility] (Rec: 10/31/24 17:22 [facility] [id number]) Pelvic Floor Assessment Urine Pelvic Floor Surgery Yes: anterior repiar Urinary Symptoms Pain Other Urinary urinary stress incontinence 4-5 times per week Symptoms Leakage Size Medium Other Leakage Causes exercise or can happen without warning, some urge to void Pelvic Clock Pelvic Clock 12-3 Atrophy Pelvic Clock 3-6 Atrophy Pelvic Clock 6-9 Atrophy Pelvic Clock 9-12 Atrophy Contraction Ability Voluntary Weak Contraction Voluntary Relaxation Weak Manual Muscle 2 Testing Left Manual Muscle 2 Testing Right Manual Muscle 1 Testing Anterior Manual Muscle 2 Testing Posterior Muscle Endurance ( 5 Seconds) Comments Pelvic Floor pt desribes a buring pain when tightening her pelvic Comments floor however with sensor in for EMG biofeedback she did not experience the burning pain PT-OP-Q Treatments Start: 10/31/24 08:41 Freq: Status: Active Protocol: Document 01/30/25 08:15 [facility] (Rec: 01/30/25 08:46 [facility] [id number]) Self-Care/Home Management Treatment Education Patient Education Pain Management Other Education we discussed pelvic floor engagement at the gym with ther ex on the effort phase, pt to continue with HEP and no emg biofeedback today, vaginal estrogen and topical testosterone were discussed as pt has a new prescription from MD for vaginal estrogen daily x 30 days PT-OP-T Assessment and Plan Start: 10/31/24 08:41 Freq: Status: Active Protocol: Document 01/30/25 08:15 [facility] (Rec: 01/30/25 08:46 [facility] [id number]) Physical Therapy Assessment Goals 3 Impairment pt c/o bladder spasms and lower abdominal cramping pain , then pelvic floor tightened up. She went back to sitting on a bottle to try and release the pelvic floor . Detention Goal (LTG) with MFR techniques Carolyn reports a overall reduction of bladder and lower abdominal cramping pain symptoms overall these symptoms have improved however Carolyn has recently had 2 UTI's back to back and this increased tissue irritation and bladder irritation again LTG Duration 12 weeks 2 Impairment Decreased pelvic floor endurance Short Term Goal (STG Carolyn is able to sustain a pelvic floor contraction ) in supine x 10 seconds excellent progress STG Duration 4 weeks Manufacturing Chief Engineer Goal (LTG) Carolyn is able to sustain a pelvic floor contraction in sitting x 5 seconds good progress, pt still feels more control in supine LTG Duration 8 weeks 1 Impairment pelvic floor weakness and atrophy Manufacturing Chief Engineer Goal (LTG) Carolyn is able to strengthen her pelvic floor to 3/5 MMT or better for improved support of her pelvic organs and to decrease urinary incontinence Slowly improving LTG Duration 12 weeks Assessment Summary Assessment No EMG biofeedback today and shortened visit as Carolyn is dealing with a yeast infection after her bout with 3 UTI's. She is wanting to wait until next visit to return to biofeedback. I am updating her plan of care as she feels she has been sick for the last month and she would like additional time to increase pelvic floor strength Physical Therapy Plan Frequency and Duration Frequency of 1x/Week Treatment Duration of 8 treatment (weeks) Plan of Care Start 01/30/25 Date Plan of Care End 03/27/25 Date Therapeutic Interventions Therapeutic Home Exercise Program,Neuromuscular Re-education, Interventions Patient/Caregiver Education,Self-Care/Home Management, Soft Tissue Mobilization,Therapeutic Exercises Modalities Biofeedback Next Visit Focus/Plan Next Note Type Treatment Note Next Visit Plan continue progressive strength for pelvic floor, work on squats with pelvic floor activation on the way up, add in quick contractions
--- NOTE | 2025-01-30 08:47 | PT.OPPOC ---
Physical, Occupational & Speech Therapy At [facility] Current Diagnoses Pelvic muscle wasting (01/30/25) Other female genital prolapse (01/30/25) Pelvic and perineal pain (01/30/25) Visit Care Team Role Provider Type Isa Akhtar DO Primary Care Provider Physician Specialty: Family Practice Address: [address] [place] [address], [address], [address] Email: [email or web address] Tomasa Blake PA-C Family Provider Non-Staff Specialty: Medical Address: [address] [place] [address], [id number] Email: Suzy Lowery MD Attending Provider Physician Referring Provider Specialty: Gynecology CIVIL ENGINE[employer] Obstetrics Address: [address] [place] [address] [address] [place] [address], [id number] Email: [email or web address] Plan Of Care PT-OP-B Current Condition Start: 10/31/24 08:41 Freq: Status: Active Protocol: Document 10/31/24 09:00 [facility] (Rec: 10/31/24 09:15 [facility] [id number]) Current Condition History of Current Condition Onset Date past 2 years Current Complaints weakness in her pelvic floor, cramping History of Current 64 year old female s/p anterior repair/sacralspinal Condition ligament on 04/10/2024 The leakage has been better since surgery but at times she will notice leakage that she calls suprises. For example she was at the beach and threw a rock and experienced leakage. She c/o bladder spasms, lower abdominal pain and pelvic floor weakness. During intercourse she feels that she doesn't have any gripping power. SHe feels the cramping low in her pelvis and she did feel this prior to surgery as well. SHe has tried to do the kegels but the next day she will feel vaginal burning. A couple of times she has felt like she had a UTI and it turned out not to be. The cramping makes her feel like she needs to use the bathroom. Sometimes the stream is slow and she wonders if she has emptied completely. Prior Treatments and past medical history of anterior repair/sacralspinal Tests ligament repair 04/10/24 Treatment Goals Patient/Caregiver Treatment goals include strengthening the pelvic floor Goals to reduce symptoms PT-OP-T Assessment and Plan Start: 10/31/24 08:41 Freq: Status: Active Protocol: Document 01/30/25 08:15 [facility] (Rec: 01/30/25 08:46 [facility] [id number]) Physical Therapy Assessment Goals 3 Impairment pt c/o bladder spasms and lower abdominal cramping pain , then pelvic floor tightened up. She went back to sitting on a bottle to try and release the pelvic floor . Longterm Goal (LTG) with MFR techniques Carolyn reports a overall reduction of bladder and lower abdominal cramping pain symptoms overall these symptoms have improved however Carolyn has recently had 2 UTI's back to back and this increased tissue irritation and bladder irritation again LTG Duration 12 weeks 2 Impairment Decreased pelvic floor endurance Short Term Goal (STG Carolyn is able to sustain a pelvic floor contraction ) in supine x 10 seconds excellent progress STG Duration 4 weeks Longterm Goal (LTG) Carolyn is able to sustain a pelvic floor contraction in sitting x 5 seconds good progress, pt still feels more control in supine LTG Duration 8 weeks 1 Impairment pelvic floor weakness and atrophy Longterm Goal (LTG) Carolyn is able to strengthen her pelvic floor to 3/5 MMT or better for improved support of her pelvic organs and to decrease urinary incontinence Slowly improving LTG Duration 12 weeks Assessment Summary Assessment No EMG biofeedback today and shortened visit as Carolyn is dealing with a yeast infection after her bout with 3 UTI's. She is wanting to wait until next visit to return to biofeedback. I am updating her plan of care as she feels she has been sick for the last month and she would like additional time to increase pelvic floor strength Physical Therapy Plan Frequency and Duration Frequency of 1x/Week Treatment Duration of 8 treatment (weeks) Plan of Care Start 01/30/25 Date Plan of Care End 03/27/25 Date Therapeutic Interventions Therapeutic Home Exercise Program,Neuromuscular Re-education, Interventions Patient/Caregiver Education,Self-Care/Home Management, Soft Tissue Mobilization,Therapeutic Exercises Modalities Biofeedback Next Visit Focus/Plan Next Note Type Treatment Note Next Visit Plan continue progressive strength for pelvic floor, work on squats with pelvic floor activation on the way up, add in quick contractions Plan of Care Dates Plan of Care Start Date 01/30/25 Plan of Care End Date 03/27/25 Electronically Signed by: Martha Husain, PT 01/30/25 0847 If you are in agreement with this Plan of Care, please return a signed and dated copy. I have reviewed this Plan of Care and certify that the skilled therapy services above are required to meet the patient?s needs. Physician Signature Date Printed Name and Credentials Clinical Instructor Signature Printed Name and Credentials
--- NOTE | 2025-02-06 16:41 | PT.OTN ---
Current Diagnoses Pelvic muscle wasting (02/06/25) Other female genital prolapse (02/06/25) Pelvic and perineal pain (02/06/25) Physical Therapy Treatment Note PT-OP-A Visit Information Start: 10/31/24 08:41 Freq: Status: Active Protocol: Document 02/06/25 08:15 [facility] (Rec: 02/06/25 09:00 [facility] [id number]) Out-Patient Physical Therapy Visit Information Visit Information Visit Type Treatment Note Visit Start Time 08:15 Visit Stop Time 09:00 Visit Number 9 PT-OP-B Current Condition Start: 10/31/24 08:41 Freq: Status: Active Protocol: Document 10/31/24 09:00 [facility] (Rec: 10/31/24 09:15 [facility] [id number]) Current Condition History of Current Condition Onset Date past 2 years Current Complaints weakness in her pelvic floor, cramping History of Current 64 year old female s/p anterior repair/sacralspinal Condition ligament on 04/10/2024 The leakage has been better since surgery but at times she will notice leakage that she calls suprises. For example she was at the beach and threw a rock and experienced leakage. She c/o bladder spasms, lower abdominal pain and pelvic floor weakness. During intercourse she feels that she doesn't have any gripping power. SHe feels the cramping low in her pelvis and she did feel this prior to surgery as well. SHe has tried to do the kegels but the next day she will feel vaginal burning. A couple of times she has felt like she had a UTI and it turned out not to be. The cramping makes her feel like she needs to use the bathroom. Sometimes the stream is slow and she wonders if she has emptied completely. Prior Treatments and past medical history of anterior repair/sacralspinal Tests ligament repair 04/10/24 Treatment Goals Patient/Caregiver Treatment goals include strengthening the pelvic floor Goals to reduce symptoms PT-OP-C Subjective Start: 10/31/24 08:41 Freq: Status: Active Protocol: Document 02/06/25 08:15 [facility] (Rec: 02/06/25 09:00 [facility] [id number]) OP-PT Subjective Patient Comments Patient Comments pt notes she is feeling a lot better she has been doing better with her exercises Patient Reported Improving Progress PT-OP-F Manual Assessment Start: 10/31/24 08:41 Freq: Status: Active Protocol: Document 10/31/24 09:00 [facility] (Rec: 11/02/24 08:27 [facility] [id number]) Manual Assessments Soft Tissue Assessment Soft Tissue Mobility tightness in the suprapubic fascia surrounding the Assessment bladder and on the left side of the abdominal wall near the anterior pelvis and descending colon PT-OP-I Pelvic Floor Start: 10/31/24 08:41 Freq: Status: Active Protocol: Document 10/31/24 09:00 [facility] (Rec: 10/31/24 17:22 [facility] [id number]) Pelvic Floor Assessment Urine Pelvic Floor Surgery Yes: anterior repiar Urinary Symptoms Pain Other Urinary urinary stress incontinence 4-5 times per week Symptoms Leakage Size Medium Other Leakage Causes exercise or can happen without warning, some urge to void Pelvic Clock Pelvic Clock 12-3 Atrophy Pelvic Clock 3-6 Atrophy Pelvic Clock 6-9 Atrophy Pelvic Clock 9-12 Atrophy Contraction Ability Voluntary Weak Contraction Voluntary Relaxation Weak Manual Muscle 2 Testing Left Manual Muscle 2 Testing Right Manual Muscle 1 Testing Anterior Manual Muscle 2 Testing Posterior Muscle Endurance ( 5 Seconds) Comments Pelvic Floor pt desribes a buring pain when tightening her pelvic Comments floor however with sensor in for EMG biofeedback she did not experience the burning pain PT-OP-Q Treatments Start: 10/31/24 08:41 Freq: Status: Active Protocol: Document 02/06/25 08:15 [facility] (Rec: 02/06/25 09:00 [facility] [id number]) Therapeutic Exercises Supine Exercises templates for eccentric control Reps/Minutes x 5 min ball squeeze with pelvic floor contraction Supine Exercise Name elevated tone at baseline today 2.0 uv Reps/Minutes 10 reps holding 10 relaxing 10 Comments 15.2 and max of 27.1 modified pelvic floor stretch Supine Exercise Name worked on getting pelvic floor relaxed Reps/Minutes x 20 reps pelvic floor long holds Reps/Minutes 10 sec hold and 10 sec rest PT-OP-T Assessment and Plan Start: 10/31/24 08:41 Freq: Status: Active Protocol: Document 02/06/25 08:15 [facility] (Rec: 02/06/25 09:00 [facility] [id number]) Physical Therapy Assessment Goals 3 Impairment pt c/o bladder spasms and lower abdominal cramping pain , then pelvic floor tightened up. She went back to sitting on a bottle to try and release the pelvic floor . Skilled Nursing Goal (LTG) with MFR techniques Carolyn reports a overall reduction of bladder and lower abdominal cramping pain symptoms overall these symptoms have improved however Carolyn has recently had 2 UTI's back to back and this increased tissue irritation and bladder irritation again LTG Duration 12 weeks 2 Impairment Decreased pelvic floor endurance Short Term Goal (STG Carolyn is able to sustain a pelvic floor contraction ) in supine x 10 seconds excellent progress STG Duration 4 weeks Commercial Installer Goal (LTG) Carolyn is able to sustain a pelvic floor contraction in sitting x 5 seconds good progress, pt still feels more control in supine LTG Duration 8 weeks 1 Impairment pelvic floor weakness and atrophy Commercial Installer Goal (LTG) Carolyn is able to strengthen her pelvic floor to 3/5 MMT or better for improved support of her pelvic organs and to decrease urinary incontinence Slowly improving LTG Duration 12 weeks Assessment Summary Assessment Carolyn tested stronger today for pelvic floor contractions. She was shakey though in her muscles and wasn't able to relax to baseline until the end of our session. We discussed how her body has been dealing with the infection. She was advised to spend additional time on pelvic floor stretches to work on fully relaxing. Physical Therapy Plan Frequency and Duration Frequency of 1x/Week Treatment Duration of 8 treatment (weeks) Plan of Care Start 01/30/25 Date Plan of Care End 03/27/25 Date Therapeutic Interventions Therapeutic Home Exercise Program,Neuromuscular Re-education, Interventions Patient/Caregiver Education,Self-Care/Home Management, Soft Tissue Mobilization,Therapeutic Exercises Modalities Biofeedback Next Visit Focus/Plan Next Note Type Treatment Note Next Visit Plan continue progressive strength for pelvic floor, work on squats with pelvic floor activation on the way up, add in quick contractions
--- NOTE | 2025-02-28 13:05 | PT.OTN ---
Current Diagnoses Pelvic muscle wasting (02/28/25) Other female genital prolapse (02/28/25) Pelvic and perineal pain (02/28/25) Physical Therapy Treatment Note PT-OP-A Visit Information Start: 10/31/24 08:41 Freq: Status: Active Protocol: Document 02/28/25 09:03 [facility] (Rec: 02/28/25 09:43 [facility] [id number]) Out-Patient Physical Therapy Visit Information Visit Information Visit Type Treatment Note Visit Start Time 09:04 Visit Stop Time 09:45 Visit Number 10 PT-OP-B Current Condition Start: 10/31/24 08:41 Freq: Status: Active Protocol: Document 10/31/24 09:00 [facility] (Rec: 10/31/24 09:15 [facility] [id number]) Current Condition History of Current Condition Onset Date past 2 years Current Complaints weakness in her pelvic floor, cramping History of Current 64 year old female s/p anterior repair/sacralspinal Condition ligament on 04/10/2024 The leakage has been better since surgery but at times she will notice leakage that she calls suprises. For example she was at the beach and threw a rock and experienced leakage. She c/o bladder spasms, lower abdominal pain and pelvic floor weakness. During intercourse she feels that she doesn't have any gripping power. SHe feels the cramping low in her pelvis and she did feel this prior to surgery as well. SHe has tried to do the kegels but the next day she will feel vaginal burning. A couple of times she has felt like she had a UTI and it turned out not to be. The cramping makes her feel like she needs to use the bathroom. Sometimes the stream is slow and she wonders if she has emptied completely. Prior Treatments and past medical history of anterior repair/sacralspinal Tests ligament repair 04/10/24 Treatment Goals Patient/Caregiver Treatment goals include strengthening the pelvic floor Goals to reduce symptoms PT-OP-C Subjective Start: 10/31/24 08:41 Freq: Status: Active Protocol: Document 02/28/25 09:03 [facility] (Rec: 02/28/25 09:43 [facility] [id number]) OP-PT Subjective Patient Comments Patient Comments Carolyn did a backpacking trip and feels she got heat exhaustion. Her pelvic floor did fine backpacking but a week and a half later she leaked getting out of the car for no reason. No longer having irritation in the vaginal wall. PT-OP-F Manual Assessment Start: 10/31/24 08:41 Freq: Status: Active Protocol: Document 10/31/24 09:00 [facility] (Rec: 11/02/24 08:27 [facility] [id number]) Manual Assessments Soft Tissue Assessment Soft Tissue Mobility tightness in the suprapubic fascia surrounding the Assessment bladder and on the left side of the abdominal wall near the anterior pelvis and descending colon PT-OP-I Pelvic Floor Start: 10/31/24 08:41 Freq: Status: Active Protocol: Document 10/31/24 09:00 [facility] (Rec: 10/31/24 17:22 [facility] [id number]) Pelvic Floor Assessment Urine Pelvic Floor Surgery Yes: anterior repiar Urinary Symptoms Pain Other Urinary urinary stress incontinence 4-5 times per week Symptoms Leakage Size Medium Other Leakage Causes exercise or can happen without warning, some urge to void Pelvic Clock Pelvic Clock 12-3 Atrophy Pelvic Clock 3-6 Atrophy Pelvic Clock 6-9 Atrophy Pelvic Clock 9-12 Atrophy Contraction Ability Voluntary Weak Contraction Voluntary Relaxation Weak Manual Muscle 2 Testing Left Manual Muscle 2 Testing Right Manual Muscle 1 Testing Anterior Manual Muscle 2 Testing Posterior Muscle Endurance ( 5 Seconds) Comments Pelvic Floor pt desribes a buring pain when tightening her pelvic Comments floor however with sensor in for EMG biofeedback she did not experience the burning pain PT-OP-Q Treatments Start: 10/31/24 08:41 Freq: Status: Active Protocol: Document 02/28/25 09:03 [facility] (Rec: 02/28/25 09:43 [facility] [id number]) Therapeutic Exercises Supine Exercises templates for eccentric control and coordination Reps/Minutes 5 min hip flexor stretching Supine Exercise Name HEP Comments manual hip flexor stretch B today ball squeeze with pelvic floor contraction Supine Exercise Name elevated tone at baseline today 2.0 uv Reps/Minutes 10 reps holding 10 relaxing 10 Comments 15.2 and max of 27.1 hooklying clam shells with theraband Reps/Minutes level 2 TB 2 x 10 reps pelvic floor long holds Reps/Minutes 10 sec hold and 10 sec rest Comments 8.1 and max of 14.0 Manual Therapy Treatment Consent Patient gave verbal Yes consent for manual treatment Manual Techniques 1 Type manual hip stretches B Body Position Supine Comments Carolyn is doing much better overall with hip ROM and flexibility as I didn't find any tightness today Self-Care/Home Management Treatment Education Patient Education Home Exercise Program,Pain Management Activities Self-Care/Home time was spent today listening to Carolyn's symptoms Management following her back packing trip and discussing heat Activities exhaustion and how long it takes for your body to bounce back after heat exhaustion PT-OP-T Assessment and Plan Start: 10/31/24 08:41 Freq: Status: Active Protocol: Document 02/28/25 13:02 [facility] (Rec: 02/28/25 13:05 [facility] [id number]) Physical Therapy Assessment Assessment Summary Assessment Time was spent today discussing heat exhaustion from Carolyn's backpacking trip. She did really well with her pelvic floor while hiking and backpacking. A week and a half after she returned she had a episode where she lost urine for no reason at all. Her body is still feeling exhausted from the heat exhaustion. With biofeedback today she was able to raise her average on EMG biofeedback from the last visit so she is doing better overall with pelvic floor strength. We will do one more visit in 2 weeks to check in on if she is experiencing any other leakage to and check strength one additional time Physical Therapy Plan Frequency and Duration Frequency of 1x/Week Treatment Duration of 8 treatment (weeks) Plan of Care Start 01/30/25 Date Plan of Care End 03/27/25 Date Therapeutic Interventions Therapeutic Home Exercise Program,Neuromuscular Re-education, Interventions Patient/Caregiver Education,Self-Care/Home Management, Soft Tissue Mobilization,Therapeutic Exercises Modalities Biofeedback Next Visit Focus/Plan Next Note Type Treatment Note Next Visit Plan recheck strength and endurance of the levator ani next visit
--- NOTE | 2025-03-15 18:07 | PT.OPPOC ---
Physical, Occupational & Speech Therapy At [facility] Current Diagnoses Pelvic muscle wasting (03/14/25) Other female genital prolapse (03/14/25) Pelvic and perineal pain (03/14/25) Visit Care Team Role Provider Type Isa Akhtar DO Primary Care Provider Physician Specialty: Family Practice Address: [address] [place] [address], [address], [address] Email: [email or web address] Tomasa Blake PA-C Family Provider Non-Staff Specialty: Medical Address: [address] [place] [address], [address] Email: Suzy Lowery MD Attending Provider Physician Referring Provider Specialty: Gynecology VEGETABLE HANDLER Obstetrics Address: [address] [place] [address] [address] [place] [address], [address] Email: [email or web address] Plan Of Care PT-OP-A Visit Information Start: 10/31/24 08:41 Freq: Status: Active Protocol: Document 03/14/25 09:49 [facility] (Rec: 03/14/25 10:45 [facility] [id number]) Out-Patient Physical Therapy Visit Information Visit Information Visit Type Progress Note Visit Start Time 09:50 Visit Stop Time 10:30 Visit Number 11 PT-OP-B Current Condition Start: 10/31/24 08:41 Freq: Status: Active Protocol: Document 10/31/24 09:00 [facility] (Rec: 10/31/24 09:15 [facility] [id number]) Current Condition History of Current Condition Onset Date past 2 years Current Complaints weakness in her pelvic floor, cramping History of Current 64 year old female s/p anterior repair/sacralspinal Condition ligament on 04/10/2024 The leakage has been better since surgery but at times she will notice leakage that she calls suprises. For example she was at the beach and threw a rock and experienced leakage. She c/o bladder spasms, lower abdominal pain and pelvic floor weakness. During intercourse she feels that she doesn't have any gripping power. SHe feels the cramping low in her pelvis and she did feel this prior to surgery as well. SHe has tried to do the kegels but the next day she will feel vaginal burning. A couple of times she has felt like she had a UTI and it turned out not to be. The cramping makes her feel like she needs to use the bathroom. Sometimes the stream is slow and she wonders if she has emptied completely. Prior Treatments and past medical history of anterior repair/sacralspinal Tests ligament repair 04/10/24 Treatment Goals Patient/Caregiver Treatment goals include strengthening the pelvic floor Goals to reduce symptoms PT-OP-C Subjective Start: 10/31/24 08:41 Freq: Status: Active Protocol: Document 03/14/25 09:49 [facility] (Rec: 03/14/25 10:45 [facility] [id number]) OP-PT Subjective Patient Comments Patient Comments pt notes she has had a little bit of leakage at different times for now reason, just a couple drops she does notes that she has more of a trickle with voiding right now. She is giving it time when she voids to fully empty She went on a backpacking trip and did not experience any leakage PT-OP-F Manual Assessment Start: 10/31/24 08:41 Freq: Status: Active Protocol: Document 10/31/24 09:00 [facility] (Rec: 11/02/24 08:27 [facility] [id number]) Manual Assessments Soft Tissue Assessment Soft Tissue Mobility tightness in the suprapubic fascia surrounding the Assessment bladder and on the left side of the abdominal wall near the anterior pelvis and descending colon PT-OP-I Pelvic Floor Start: 10/31/24 08:41 Freq: Status: Active Protocol: Document 10/31/24 09:00 [facility] (Rec: 10/31/24 17:22 [facility] [id number]) Pelvic Floor Assessment Urine Pelvic Floor Surgery Yes: anterior repiar Urinary Symptoms Pain Other Urinary urinary stress incontinence 4-5 times per week Symptoms Leakage Size Medium Other Leakage Causes exercise or can happen without warning, some urge to void Pelvic Clock Pelvic Clock 12-3 Atrophy Pelvic Clock 3-6 Atrophy Pelvic Clock 6-9 Atrophy Pelvic Clock 9-12 Atrophy Contraction Ability Voluntary Weak Contraction Voluntary Relaxation Weak Manual Muscle 2 Testing Left Manual Muscle 2 Testing Right Manual Muscle 1 Testing Anterior Manual Muscle 2 Testing Posterior Muscle Endurance ( 5 Seconds) Comments Pelvic Floor pt desribes a buring pain when tightening her pelvic Comments floor however with sensor in for EMG biofeedback she did not experience the burning pain PT-OP-Q Treatments Start: 10/31/24 08:41 Freq: Status: Active Protocol: Document 03/14/25 09:49 [facility] (Rec: 03/14/25 10:45 [facility] [id number]) Therapeutic Exercises Supine Exercises templates for eccentric control and coordination Reps/Minutes 5 min ball squeeze with pelvic floor contraction Supine Exercise Name resting tone at baseline today Reps/Minutes 10 reps holding 10 relaxing 10 Comments 11.5 and 17.3 max hooklying clam shells with theraband Reps/Minutes level 2 TB 2 x 10 reps modified pelvic floor stretch Supine Exercise Name worked on getting pelvic floor relaxed Reps/Minutes x 20 reps pelvic floor long holds Reps/Minutes 10 sec hold and 10 sec rest Comments 10. and max 15 PT-OP-T Assessment and Plan Start: 10/31/24 08:41 Freq: Status: Active Protocol: Document 03/14/25 09:49 [facility] (Rec: 03/14/25 10:45 [facility] [id number]) Physical Therapy Assessment Goals 3 Impairment pt c/o bladder spasms and lower abdominal cramping pain , then pelvic floor tightened up. She went back to sitting on a bottle to try and release the pelvic floor . Education Director Goal (LTG) with MFR techniques Carolyn reports a overall reduction of bladder and lower abdominal cramping pain symptoms overall these symptoms have improved however Carolyn has recently had 2 UTI's back to back and this increased tissue irritation and bladder irritation again LTG Duration 12 weeks 2 Impairment Decreased pelvic floor endurance Short Term Goal (STG Carolyn is able to sustain a pelvic floor contraction ) in supine x 10 seconds excellent progress STG Duration 4 weeks [facility] Goal (LTG) Carolyn is able to sustain a pelvic floor contraction in sitting x 5 seconds good progress, pt still feels more control in supine LTG Duration 8 weeks 1 Impairment pelvic floor weakness and atrophy [facility] Goal (LTG) Carolyn is able to strengthen her pelvic floor to 3/5 MMT or better for improved support of her pelvic organs and to decrease urinary incontinence Slowly improving LTG Duration 12 weeks Assessment Summary Assessment Overall Carolyn has made good progress and she was able to go on a backpacking trip without leakage. She did get heat exhaustion and felt very tired once home. Since that time she has experienced a couple of episodes where she will leak a few drops for no reason at all. She did show some elevated tone with her pelvic floor since she has returned from her backpacking trip and I have encouraged her to continue with her stretches for her pelvic floor and to take time to fully empty her bladder. She would like to continue PT for 1-2 visits Physical Therapy Plan Frequency and Duration Frequency of 1x/Week Treatment Duration of 6 treatment (weeks) Plan of Care Start 03/14/25 Date Plan of Care End 04/25/25 Date Next Visit Focus/Plan Next Note Type Treatment Note Next Visit Plan recheck one additional visit, checking in with how Carolyn is doing fully emptying her bladder Plan of Care Dates Plan of Care Start Date 03/14/25 Plan of Care End Date 04/25/25 Electronically Signed by: Martha Husain, PT 03/15/25 1805 If you are in agreement with this Plan of Care, please return a signed and dated copy. I have reviewed this Plan of Care and certify that the skilled therapy services above are required to meet the patient?s needs. Physician Signature Date Printed Name and Credentials Clinical Instructor Signature Printed Name and Credentials
--- NOTE | 2025-04-19 12:00 | PT.OPPOC ---
Physical, Occupational & Speech Therapy At [facility] Current Diagnoses Pelvic muscle wasting (04/19/25) Other female genital prolapse (04/19/25) Pelvic and perineal pain (04/19/25) Visit Care Team Role Provider Type Isa Akhtar DO Primary Care Provider Physician Specialty: Family Practice Address: [address] [place] [address], [address], [place], [address] Email: [email or web address] Tomasa Blake PA-C Family Provider Non-Staff Specialty: Medical Address: [address] [place] [address], [address] Email: Suzy Lowery MD Attending Provider Physician Referring Provider Specialty: Gynecology [employer] Obstetrics Address: [address] [place] [address] [address] [place] [address], [address] Email: [email or web address] Plan Of Care PT OP: Pelvic Health Start: 03/15/25 18:08 Freq: Status: Active Protocol: Document 04/19/25 08:15 [facility] (Rec: 04/19/25 08:28 [facility] [id number]) Out-Patient Physical Therapy Visit Information Visit Information Visit Type Progress Note Visit Start Time 08:15 Visit Stop Time 09:00 Visit Number 12 OP-PT Subjective Patient Comments Patient Comments pt reports she has good days and bad days and she has times when her bladder is irritated and telling her she needs to empty even though she knows she doesn't need to go. Overall she is not thinking about her bladder as much as she used to. Manual Therapy Treatment Soft Tissue Mobilization MFR over the suprapubic fascia Comments worked on MFR over the suprapubic fascia and bladder, worked on the lateral abdominal [place], pt. has a history of endometriosis with laparoscopic removal of endometriosis. She is still having abdominal cramping symptoms that are intermittent Manual Techniques 1 Type manual hip stretches B Body Position Supine Comments tightness bilaterally in quads and iliopsoas musculature Self-Care/Home Management Treatment Education Patient Education Home Exercise Program Other Education time was spent discussing strategies for home, use of estrogen cream, self abdominal massage, stretches to help decrease tension at the bladder Physical Therapy Assessment Goals 3 Impairment pt c/o bladder spasms and lower abdominal cramping pain , then pelvic floor tightened up. She went back to sitting on a bottle to try and release the pelvic floor . Usp Goal (LTG) with MFR techniques Carolyn reports a overall reduction of bladder and lower abdominal cramping pain symptoms overall these symptoms have improved however Carolyn has recently had 2 UTI's back to back and this increased tissue irritation and bladder irritation again LTG Duration 12 weeks 2 Impairment Decreased pelvic floor endurance Short Term Goal (STG Carolyn is able to sustain a pelvic floor contraction ) in supine x 10 seconds excellent progress STG Duration 4 weeks Usp Goal (LTG) Carolyn is able to sustain a pelvic floor contraction in sitting x 5 seconds good progress, pt still feels more control in supine LTG Duration 8 weeks 1 Impairment pelvic floor weakness and atrophy Usp Goal (LTG) Carolyn is able to strengthen her pelvic floor to 3/5 MMT or better for improved support of her pelvic organs and to decrease urinary incontinence Slowly improving LTG Duration 12 weeks Assessment Summary Assessment Overall Carolyn has made progress and is no longer experiencing leakage with activity or feeling pressure in her pelvic floor. She does report intermittent small amounts of leakage for no reason and she cant contribute this to anything she is doing. She does feel she is no longer thinking about her bladder all the time as she had in the past. She would like to follow up with a visit with me in one month so I will extend her plan of care Physical Therapy Plan Frequency and Duration Frequency of 1x/Week Treatment Duration of 8 treatment (weeks) Plan of Care Start 04/19/25 Date Plan of Care End 06/14/25 Date Therapeutic Interventions Therapeutic Home Exercise Program,Neuromuscular Re-education, Interventions Patient/Caregiver Education,Self-Care/Home Management, Soft Tissue Mobilization,Therapeutic Exercises Modalities Biofeedback Next Visit Focus/Plan Next Note Type Treatment Note Next Visit Plan recheck one additional visit, checking in with how Carolyn is doing fully emptying her bladder Plan of Care Dates Plan of Care Start Date 04/19/25 Plan of Care End Date 06/14/25 Electronically Signed by: Martha Husain, PT 04/24/25 0815 If you are in agreement with this Plan of Care, please return a signed and dated copy. I have reviewed this Plan of Care and certify that the skilled therapy services above are required to meet the patient?s needs. Physician Signature Date Printed Name and Credentials Clinical Instructor Signature Printed Name and Credentials
--- NOTE | 2025-05-31 16:24 | PT.OPDS ---
Current Diagnoses Pelvic muscle wasting (05/31/25) Other female genital prolapse (05/31/25) Pelvic and perineal pain (05/31/25) Visit Care Team Role Provider Type Isa Akhtar DO Primary Care Provider Physician Specialty: Family Practice Address: [address] [place] [address], [address], [place], [address] Email: [email or web address] Tomasa Blake PA-C Family Provider Non-Staff Specialty: Medical Address: [address], [address] Email: Suzy Lowery MD Attending Provider Physician Referring Provider Specialty: Gynecology ETHNOLOGY PROFESSOR Obstetrics Address: [address] [place] [address] [address], [place], [address] Email: [email or web address] Visit Number Visit Number 13 Discharge Summary PT OP: Pelvic Health Start: 03/15/25 18:08 Freq: Status: Active Protocol: Document 05/31/25 08:15 [facility] (Rec: 05/31/25 08:22 [facility] [id number]) Out-Patient Physical Therapy Visit Information Visit Information Visit Type Treatment Note Visit Start Time 08:15 Visit Stop Time 09:00 Visit Number 13 OP-PT Subjective Patient Comments Patient Comments pt reports she has a headache today and has been dealing with a neck pain and seeing PT for her neck. She feels some irritation in the pelvic floor and is wondering if she is guarded. Overall she is better but she will still get irritation into the pelvic floor Therapeutic Exercises Supine Exercises templates for eccentric control and coordination Reps/Minutes 5 min templates for eccentric control Reps/Minutes x 5 min for eccentric control and coordination ball squeeze with pelvic floor contraction Supine Exercise Name resting tone at baseline today Reps/Minutes 10 reps holding 10 relaxing 10 Comments 11.5 and 17.3 max modified pelvic floor stretch Supine Exercise Name worked on getting pelvic floor relaxed Reps/Minutes x 20 reps pelvic floor long holds Reps/Minutes 11.0 and 18.5 max Comments 10 reps Other Exercises klaus pose Reps/Minutes hold 30-50 sec quadruped rock backs Reps/Minutes 10 reps cat cow Reps/Minutes x 10 reps Self-Care/Home Management Treatment Education Patient Education Home Exercise Program,Pain Management Other Education educated on use of estrogen cream vaginally as well as labia, HEP Physical Therapy Assessment Goals 3 Impairment pt c/o bladder spasms and lower abdominal cramping pain , then pelvic floor tightened up. She went back to sitting on a bottle to try and release the pelvic floor . [facility]entiary Goal (LTG) with MFR techniques Carolyn reports a overall reduction of bladder and lower abdominal cramping pain symptoms overall these symptoms have improved however Carolyn has recently had 2 UTI's back to back and this increased tissue irritation and bladder irritation again LTG Duration 12 weeks 2 Impairment Decreased pelvic floor endurance Short Term Goal (STG Carolyn is able to sustain a pelvic floor contraction ) in supine x 10 seconds goal met STG Duration 4 weeks Penitentiary Goal (LTG) Carolyn is able to sustain a pelvic floor contraction in sitting x 5 seconds good progress, pt still feels more control in supine LTG Duration 8 weeks 1 Impairment pelvic floor weakness and atrophy [employer] Traffic Control Equipment Repairer Goal (LTG) Carolyn is able to strengthen her pelvic floor to 3/5 MMT or better for improved support of her pelvic organs and to decrease urinary incontinence goal met LTG Duration 12 weeks Assessment Summary Assessment Carolyn was able to fully relax her pelvic floor in supine today. I am wondering if she is feeling tissue irritation vs muscle spasm as she looks really good with her resting tone. We discussed use of the estrogen cream and she was only using it externally on the labia and hadn't been using the internal tablets. I encouraged her to continued with the internal estrogen as well. At this point her pelvic floor muscles are much stronger and she has good ability to relax her pelvic floor. She will be discharged from PT today to a [facility] Physical Therapy Plan Discharge Physical Therapy Discharge Reasons Goals Met
== END 2025-06-04 08:46 | disposition home or self-care (01) ==
LOC: PHYS 08:15
PROVIDERS: Family Provider Physician Assistant Medical; PCP Family Medicine; Referring Provider Obstetrics & Gynecology; Visit Provider Obstetrics & Gynecology
DX: N81.89 Other female genital prolapse (principal); N81.84 Pelvic muscle wasting; R10.2 Pelvic and perineal pain
CPT/HCPCS: 97110; 97140; 97162; 97535

== ENCOUNTER → 2025-07-03 06:58 | Outpatient (CLI) | payer MEDICARE, OTHER, SELFPAY ==
[2024-10-03 12:30] VITALS: BMI 25.8
[2025-07-03 08:31] LABS: Add Manual Diff / Slide Review NO; Hematocrit 40.7 % (36-46); Hemoglobin 13.8 g/dL (12.0-16.0); Lymphocytes Absolute Auto 1300 /uL (1100-4500); Mean Corpuscular HGB Conc 34.0 % (30-36); Mean Corpuscular Hemoglobin 30.8 PG (26-34); Mean Corpuscular Volume 90.7 fL (80-100); Platelet Count 195 X10^3/uL (150-400)
[2025-07-03 08:57] LABS: Alanine Aminotransferase 14 IU/L (<35); Albumin 3.9 g/dL (3.5-5.0); Albumin Globulin Ratio 1.5 (1.0-2.8); Alkaline Phosphatase 57 U/L (38-126); Blood Urea Nitrogen 12 mg/dL (7-17); Calcium 9.5 mg/dL (8.4-10.2); Carbon Dioxide 25 mmol/L (22-32); Chloride 109 mmol/L (98-107); Cholesterol 222 mg/dL (140-199); Estimated Glomerular Filt Rate > 60 mL/min (>60); Globulin 2.6 g/dL (1.7-4.1); Glucose 92 mg/dL (70-99); HDL Cholesterol 50 mg/dL (40-60); HEMOLYSIS < 15 (0-50); Potassium 4.1 mmol/L (3.4-5.1); Sodium 139 mmol/L (137-145); Total Protein 6.5 g/dL (6.3-8.2); Triglycerides 97 mg/dL (35-150)
== END ==
PROVIDERS: Family Provider Physician Assistant Medical; PCP Family Medicine; Referring Provider Family Medicine; Visit Provider Family Medicine
DX: M81.0 Age-related osteoporosis without current pathological fracture (principal); N81.2 Incomplete uterovaginal prolapse; N95.2 Postmenopausal atrophic vaginitis; Z79.890 Hormone replacement therapy; Z98.890 Other specified postprocedural states
CPT/HCPCS: 36415; 80053; 80061; 85025